=== PATIENT | female | born 1935 | race Caucasian/White ===

== ENCOUNTER 2022-10-07 14:25 | Outpatient (CLI) | payer MEDICARE, BC, SELFPAY | END 2022-10-07 14:26 | disposition home or self-care (01) | DX: R20.0 Anesthesia of skin (principal); I73.9 Peripheral vascular disease, unspecified | CPT/HCPCS: 93922 ==

== ENCOUNTER 2023-03-27 12:02 | Outpatient (CLI) | payer MEDICARE, BC, SELFPAY | END 2023-03-27 12:03 | disposition home or self-care (01) | PROVIDERS: PCP Family Medicine; Visit Provider Family Medicine | DX: I10 Essential (primary) hypertension (principal); R53.83 Other fatigue; E03.9 Hypothyroidism, unspecified; E78.5 Hyperlipidemia, unspecified | CPT/HCPCS: 80048; 80061; 84443; 85025 ==

== ENCOUNTER 2023-09-02 12:21 | Outpatient (CLI) | payer MEDICARE, BC, SELFPAY | END 2023-09-02 12:22 | disposition home or self-care (01) | PROVIDERS: PCP Family Medicine; Visit Provider Family Medicine | DX: I50.9 Heart failure, unspecified (principal) | CPT/HCPCS: 80048; 83880; 85025 ==

== ENCOUNTER 2023-09-23 07:24 | Emergency (ER) | payer MEDICARE, BC, SELFPAY ==
[2023-09-23] VITALS (39 sets, daily range): BP systolic 141–202; BP diastolic 67–121; PULSE 71–84; RESP 18; TEMP 37.5; O2SAT 87–100; BMI 29.3
--- NOTE | 2023-09-23 08:12 | CT_ITS ---
Final Report Patient: ANGELICA OWENS Facility:?[facility] Patient ID:?[id number] Site Patient ID:?[id number]. Site :?[id number] Study:?CT Head WITHOUT-09/23/2023 8:28:19 AM Ordering Physician:KOKO Final Report: INDICATION: Headache COMPARISON: None TECHNIQUE: CT examination of the head was performed as axial sections without intravenous contrast. Images were obtained from the vertex of the skull through the skull base. Please note that all CT scans at this facility use dose modulation, iterative reconstruction, and/or weight-based dosing when appropriate to reduce radiation dose to as low as reasonably achievable. FINDINGS: The brain shows no sign of mass lesion, mass effect, hemorrhage, or edema. There are involutional changes. There is moderate cortical atrophy and there is moderate white matter disease. There is no hydrocephalus. The visualized portions of the orbits are normal in appearance. The osseous structures are normal in appearance with no sign of abnormality in the skull base or calvarium. IMPRESSION: Involutional changes. No acute-appearing findings. Please note that all CT scans at this facility use dose modulation, iterative reconstruction, and/or weight-based dosing when appropriate to reduce radiation dose to as low as reasonably achievable. Dictated by Damon Luciano MD @ 09/23/2023 8:33:00 AM (Electronic Signature)
[2023-09-23 08:19] LABS: Troponin, Point-of-Care* 0.01 ng/ml (0.01-0.04)
[2023-09-23 08:27] LABS: Basophils Absolute Auto 0.03 K/uL (0.00-0.30); Basophils Percent Auto 0.3 % (0.0-3.0); Eosinophils Absolute Auto 0.39 K/uL (0.00-0.50); Eosinophils Percent Auto 3.6 % (0.0-7.0); Hematocrit 42.7 % (33.0-51.0); Hemoglobin* 13.7 gm/dL (12.0-16.0); Immature Granulocytes Abs Auto 0.04 K/uL (0.00-0.30); Immature Granulocytes Pct Auto 0.4 %; Lymphocytes Percent Auto 13.5 % (20-44); Mean Corpuscular HGB Conc 32 gm/dL (32-36); Mean Corpuscular Hemoglobin 30 pg (26-34); Mean Corpuscular Volume 95 fL (80-100); Monocytes Percent Auto 8.6 % (0.0-11.0); Neutrophils Percent Auto 73.6 % (42.0-72.0); Platelet Count* 293 K/uL (140-440); RDW Coefficient of Variation % 13.8 % (11.5-15.5); White Blood Count* 10.97 K/uL (4.50-11.00)
--- NOTE | 2023-09-23 08:31 | ED_ITS ---
HPI - General Adult General Date Seen: 09/23/23 Chief complaint: Dizziness/Vertigo Stated complaint: headache,dizzy Time Seen by Provider: 09/23/23 08:02 Source: patient Mode of arrival: ambulatory Limitations: no limitations History of Present Illness HPI narrative: Patient is an 88-year-old female present to emergency department for headache her. She states she has been having this headache on and off for over a year now. She is having it treated by her primary care provider. She states usually headache will get better throughout the morning states right now it is not getting better despite taking Tylenol at home. She states she needs something to get the headache under control at this time. She admits to mild dizziness, mild chest pain, mild nausea. States she did not really notice the symptoms until asked about them. She does feel like her vision is a little blurred. States the dizziness she typically has with this headache. Headache does not seem different than previous headaches. Denies fevers, chills, shortness of breath, weakness, numbness, abdominal pain. States the headache feels like it is on top of her head. No other concerns noted Related Data Home Medications Medication Instructions Recorded Confirmed acetaminophen 500 mg tablet 1,000 mg PO Q6H PRN 12/10/22 09/23/23 ammonium lactate 12 % topical cream 1 applic topical BID PRN 12/10/22 09/23/23 aspirin 81 mg chewable tablet 81 mg PO QDAY 12/10/22 09/23/23 latanoprost 0.005 % eye drops 1 drp ophthalmic (eye) QPM 12/10/22 09/23/23 levothyroxine 50 mcg tablet 50 mcg PO QDAY 12/10/22 09/23/23 (Synthroid) nystatin-triamcinolone 100,000 applic topical 12/10/22 09/02/23 unit/g-0.1 % topical cream propranolol 80 mg capsule,24 80 mg PO BID 12/10/22 09/23/23 hr,extended release triamcinolone acetonide 0.1 % 1 applic topical BID-TID 12/10/22 09/23/23 topical cream prednisolone acetate 1 % eye 1 drp ophthalmic (eye) QDAY 03/27/23 09/23/23 drops,suspension timolol 0.5 % eye drops 1 drp ophthalmic (eye) BID 03/27/23 09/23/23 clobetasol 0.05 % topical ointment 1 applic topical PRN 06/13/23 09/02/23 ketoconazole 2 % shampoo 1 applic topical 09/15/23 09/15/23 timolol maleate 0.5 % eye drops 1 drp ophthalmic (eye) 09/15/23 09/15/23 Previous Rx's Medication Instructions Recorded cowvofagil-wuydbgnftnhrm-biqehlun 1 cap PO TID PRN pain #30 caps 12/10/22 50 mg-300 mg-40 mg capsule (Fioricet) albuterol sulfate 90 mcg/actuation 2 puff inhalation Q6H PRN 01/28/23 aerosol inhaler (Ventolin HFA) shortness of breath or wheezing #8.5 grams pregabalin 25 mg capsule 25 mg PO BID #60 caps 06/16/23 valsartan 80 mg tablet 80 mg PO DAILY #90 tabs 08/26/23 furosemide 20 mg tablet 20 mg PO BID #180 tabs 09/03/23 azithromycin 250 mg tablet See Rx Instructions PO .COMPLEX #6 09/23/23 (Zithromax Z-Phillip) tabs Allergies Allergy/AdvReac Type Severity Reaction Status Date / Time hydrochlorothiazide Allergy Mild Rash Verified 09/23/23 07:33 acetaminophen Allergy Unknown Vomiting Verified 09/23/23 07:33 [From Darvocet-N] amlodipine Allergy Unknown Headache Verified 09/23/23 07:33 codeine Allergy Unknown Nausea Verified 09/23/23 07:33 doxazosin Allergy Unknown Tinnitus Verified 09/23/23 07:33 losartan Allergy Unknown Rash Verified 09/23/23 07:33 paroxetine Allergy Unknown Unknown Verified 09/23/23 07:33 pravastatin Allergy Unknown Unknown Verified 09/23/23 07:33 propoxyphene Allergy Unknown Vomiting Verified 09/23/23 07:33 [From Darvocet-N] topiramate Allergy Unknown Gastrointestinal Verified 09/23/23 07:33 Upset zinc [From Orazinc] Allergy Unknown Diarrhea Verified 09/23/23 07:33 lisinopril AdvReac Unknown Cough Verified 09/23/23 07:33 Review of Systems Status of ROS: Reports: 10 or more systems reviewed and unremarkable except as noted in History and below [facility] Medical History (Updated 09/23/23 @ 13:13 by Ced Ag, DO) Prolapse of female pelvic organs ?N81.9 - Female genital prolapse, unspecified (ICD-10) Lichen sclerosus ?L90.0 - Lichen sclerosus et atrophicus (ICD-10) Chronic cough ?R05.3 - Chronic cough (ICD-10) Chronic low back pain ?M54.50 - Low back pain, unspecified (ICD-10) ?G89.29 - Other chronic pain (ICD-10) 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) ?I67.1 - Cerebral aneurysm, nonruptured (ICD-10) History of basal cell carcinoma (BCC) ?Z85.828 - Personal history of other malignant neoplasm of skin (ICD-10) CHF (congestive heart failure) ?I50.9 - Heart failure, unspecified (ICD-10) CKD (chronic kidney disease) stage 3, GFR 30-59 ml/min ?N18.30 - Chronic kidney disease, stage 3 unspecified (ICD-10) Meralgia paresthetica ?G57.10 - Meralgia paresthetica, unspecified lower limb (ICD-10) IBS (irritable bowel syndrome) ?K58.9 - Irritable bowel syndrome without diarrhea (ICD-10) Peripheral neuropathy ?G62.9 - Polyneuropathy, unspecified (ICD-10) Bilateral sensorineural hearing loss ?H90.3 - Sensorineural hearing loss, bilateral (ICD-10) Venous insufficiency ?I87.2 - Venous insufficiency (chronic) (peripheral) (ICD-10) Hypothyroidism ?E03.9 - Hypothyroidism, unspecified (ICD-10) Adjustment disorder with depressed mood ?F43.21 - Adjustment disorder with depressed mood (ICD-10) Fuchs' corneal dystrophy of both eyes ?H18.513 - Endothelial corneal dystrophy, bilateral (ICD-10) Hyperlipidemia ?E78.5 - Hyperlipidemia, unspecified (ICD-10) Primary open angle glaucoma ?H40.1190 - Primary open-angle glaucoma, unspecified eye, stage unspecified (ICD-10) YANG (obstructive sleep apnea) ?G47.33 - Obstructive sleep apnea (adult) (pediatric) (ICD-10) Migraine ?G43.909 - Migraine, unspecified, not intractable, without status migrainosus (ICD-10) Primary hypertension ?I10 - Essential (primary) hypertension (ICD-10) Surgical History (Updated 12/26/22 @ 13:48 by Gertrude Grover) History of foot surgery ?Z98.890 - Other specified postprocedural states (ICD-10) History of blepharoplasty (10/07/13) ?Z98.890 - Other specified postprocedural states (ICD-10) History of tonsillectomy ?Z90.89 - Acquired absence of other organs (ICD-10) History of appendectomy ?Z90.49 - Acquired absence of other specified parts of digestive tract (ICD- 10) History of bladder suspension procedure (04/26/10) ?Z98.890 - Other specified postprocedural states (ICD-10) ?Z87.448 - Personal history of other diseases of urinary system (ICD-10) History of anterior colporrhaphy (02/17/19) ?Z98.890 - Other specified postprocedural states (ICD-10) History of total abdominal hysterectomy and bilateral salpingo-oophorectomy (1989) ?Z90.710 - Acquired absence of both cervix and uterus (ICD-10) ?Z90.722 - Acquired absence of ovaries, bilateral (ICD-10) ?Z90.79 - Acquired absence of other genital organ(s) (ICD-10) History of varicose vein stripping ?Z98.890 - Other specified postprocedural states (ICD-10) History of phacoemulsification of cataract of both eyes with intraocular lens implantation (2001) ?Z98.41 - Cataract extraction status, right eye (ICD-10) ?Z98.42 - Cataract extraction status, left eye (ICD-10) ?Z96.1 - Presence of intraocular lens (ICD-10) History of corneal transplant (2007) ?Z94.7 - Corneal transplant status (ICD-10) History of ptosis repair (02/24/18) ?Z98.890 - Other specified postprocedural states (ICD-10) Family History (Updated 01/12/23 @ 16:36 by Dannie Porter MD) Daughter Thyroid disease Father Lung cancer Mother Coronary artery disease Depression Endometrial cancer High blood pressure Ovarian cancer Stroke Thyroid disease Varicose veins of both lower extremities Paternal Grandmother Diabetes Sister Eczema Stroke Daughter Thyroid disease Social History Smoking Status: Never smoker Do you use any of these nicotine containing products: None Second hand tobacco smoke exposure: No How often do you have a drink containing alcohol: never AUDIT-C Alcohol total score: 0 Non-prescribed substance use: denies use Little interest or pleasure in doing things: not at all Feeling down, depressed, or hopeless: not at all Exam Narrative: Exam Narrative: Const: Well-nourished, Well-developed, in mild distress Eyes: PERRL, no conjunctival injection, and symmetrical lids HENT: Atraumatic external nose and ears. Moist mucous membranes. Neck: Symmetric, trachea midline, No thyromegaly. CVS: RRR, No murmurs or gallops. Peripheral pulses 2+ and equal in all extremities RESP: Unlabored respiratory effort. Clear to auscultation bilaterally. GI: Nontender/Nondistended, No rebound or guarding. MSK:Extremities w/o deformity, Normal Active ROM Skin: Warm, Dry. No rashes or lesions. Neuro: Normal Muscle tone, No focal neurological deficits. Psych: Awake, Alert, & Oriented x3. Appropriate mood and affect. Const: Vital Signs, click to edit/add: Vital Signs - 24 hr 09/23/23 07:26 09/23/23 08:26 09/23/23 08:30 Temperature 99.5 F Pulse Rate 75 71 Pulse Rate [Right Pulse Oximeter] 76 Respiratory Rate 18 Blood Pressure Blood Pressure [Ri ght Upper Arm] 194/106 H Pulse Oximetry 95 96 97 Oxygen Delivery Me thod Room Air 09/23/23 08:33 09/23/23 08:45 09/23/23 08:46 Temperature Pulse Rate 73 74 73 Pulse Rate [Right Pulse Oximeter] Respiratory Rate Blood Pressure 202/113 H 193/84 H Blood Pressure [Ri ght Upper Arm] Pulse Oximetry 97 93 95 Oxygen Delivery Me thod 09/23/23 08:47 09/23/23 09:00 09/23/23 09:02 Temperature Pulse Rate 72 77 77 Pulse Rate [Right Pulse Oximeter] Respiratory Rate Blood Pressure 171/71 H Blood Pressure [Ri ght Upper Arm] Pulse Oximetry 96 94 96 Oxygen Delivery Me thod 09/23/23 09:15 09/23/23 09:16 09/23/23 09:30 Temperature Pulse Rate 79 80 82 Pulse Rate [Right Pulse Oximeter] Respiratory Rate Blood Pressure 169/84 H Blood Pressure [Ri ght Upper Arm] Pulse Oximetry 95 95 96 Oxygen Delivery Me thod 09/23/23 09:32 09/23/23 09:45 09/23/23 09:49 Temperature Pulse Rate 84 80 81 Pulse Rate [Right Pulse Oximeter] Respiratory Rate Blood Pressure 162/113 H Blood Pressure [Ri ght Upper Arm] Pulse Oximetry 96 99 98 Oxygen Delivery Me thod 09/23/23 10:00 09/23/23 10:01 09/23/23 10:02 Temperature Pulse Rate 78 81 79 Pulse Rate [Right Pulse Oximeter] Respiratory Rate Blood Pressure 145/72 H Blood Pressure [Ri ght Upper Arm] Pulse Oximetry 96 98 96 Oxygen Delivery Me thod 09/23/23 10:15 09/23/23 10:16 09/23/23 10:31 Temperature Pulse Rate 79 78 81 Pulse Rate [Right Pulse Oximeter] Respiratory Rate Blood Pressure 151/71 H 154/108 H Blood Pressure [Ri ght Upper Arm] Pulse Oximetry 95 97 95 Oxygen Delivery Me thod 09/23/23 10:32 09/23/23 10:46 09/23/23 10:46 Temperature Pulse Rate 81 83 83 Pulse Rate [Right Pulse Oximeter] Respiratory Rate Blood Pressure 159/121 H 159/121 H Blood Pressure [Ri ght Upper Arm] Pulse Oximetry 95 95 95 Oxygen Delivery Me thod 09/23/23 10:47 09/23/23 11:11 09/23/23 11:15 Temperature Pulse Rate 80 77 77 Pulse Rate [Right Pulse Oximeter] Respiratory Rate Blood Pressure Blood Pressure [Ri ght Upper Arm] Pulse Oximetry 97 97 87 L Oxygen Delivery Me thod 09/23/23 11:16 09/23/23 11:17 09/23/23 11:30 Temperature Pulse Rate 80 80 77 Pulse Rate [Right Pulse Oximeter] Respiratory Rate Blood Pressure 151/80 H Blood Pressure [Ri ght Upper Arm] Pulse Oximetry 97 96 92 Oxygen Delivery Me thod 09/23/23 11:31 09/23/23 11:45 09/23/23 11:46 Temperature Pulse Rate 78 81 83 Pulse Rate [Right Pulse Oximeter] Respiratory Rate Blood Pressure 157/76 H 153/75 H Blood Pressure [Ri ght Upper Arm] Pulse Oximetry 94 94 96 Oxygen Delivery Me thod 09/23/23 12:00 09/23/23 12:01 09/23/23 12:15 Temperature Pulse Rate 81 79 77 Pulse Rate [Right Pulse Oximeter] Respiratory Rate Blood Pressure 171/82 H Blood Pressure [Ri ght Upper Arm] Pulse Oximetry 100 98 94 Oxygen Delivery Me thod 09/23/23 12:17 09/23/23 12:30 09/23/23 12:31 Temperature Pulse Rate 77 71 74 Pulse Rate [Right Pulse Oximeter] Respiratory Rate Blood Pressure 144/79 H 141/67 H Blood Pressure [Ri ght Upper Arm] Pulse Oximetry 90 88 88 Oxygen Delivery Me thod 09/23/23 12:45 Temperature Pulse Rate 73 Pulse Rate [Right Pulse Oximeter] Respiratory Rate Blood Pressure Blood Pressure [Ri ght Upper Arm] Pulse Oximetry 96 Oxygen Delivery Me thod Course Vital Signs Vital signs: Initial Vital Signs Temperature 99.5 F 09/23/23 07:26 Temperature Source Temporal Artery Scan 09/23/23 07:26 Pulse Rate 76 09/23/23 07:26 Respiratory Rate 18 09/23/23 07:26 Blood Pressure 194/106 H 09/23/23 07:26 Blood Pressure Mean 135 H 09/23/23 07:26 Blood Pressure Position Sitting 09/23/23 07:26 Pulse Oximetry 95 09/23/23 07:26 Oxygen Delivery Method Room Air 09/23/23 07:26 Vital Signs Temperature 99.5 F 09/23/23 07:26 Pulse Rate 76 09/23/23 07:26 Respiratory Rate 18 09/23/23 07:26 Blood Pressure 194/106 H 09/23/23 07:26 Pulse Oximetry 95 09/23/23 07:26 Oxygen Delivery Method Room Air 09/23/23 07:26 Temperature 99.5 F 09/23/23 07:26 Pulse Rate 73 09/23/23 12:45 Respiratory Rate 18 09/23/23 07:26 Blood Pressure 141/67 H 09/23/23 12:31 Pulse Oximetry 96 09/23/23 12:45 Oxygen Delivery Method Room Air 09/23/23 07:26 Medications Administered Medications: Discontinued Medications Generic Name Dose Route Start Last Admin Trade Name Freq PRN Reason Stop Dose Admin Diphenhydramine HCl 25 mg 09/23/23 08:11 09/23/23 08:38 Diphenhydramine 50 Mg/Ml Inj IVP 09/23/23 08:12 25 mg ONCE ONE Administration Hydralazine HCl 10 mg 09/23/23 08:20 09/23/23 08:47 Hydralazine Hcl 20 Mg/Ml Inj IVP 09/23/23 08:21 10 mg ONCE ONE Administration Lactated Ringer's 1,000 mls @ 1,000 mls/hr 09/23/23 08:11 09/23/23 08:57 Lactated Ringers 1000 Ml IV 09/23/23 09:10 Infused .Q1H ONE Infusion Ketamine HCl 20 mg/ Sodium 100.2 mls @ 200.4 mls/hr 09/23/23 09:51 09/23/23 11:56 Chloride IVPB 09/23/23 09:52 Infused ONCE ONE Infusion Ketorolac Tromethamine 15 mg 09/23/23 08:11 09/23/23 08:38 Ketorolac 15 Mg/Ml Inj IVP 09/23/23 08:12 15 mg ONCE ONE Administration Metoclopramide HCl 10 mg 09/23/23 08:11 09/23/23 08:38 Metoclopramide Hcl 5 Mg/Ml Inj IVP 09/23/23 08:12 10 mg ONCE ONE Administration Morphine Sulfate 4 mg 09/23/23 12:01 09/23/23 12:19 Morphine 4 Mg/Ml Inj IM 09/23/23 12:02 4 mg ONCE ONE Administration Medical Decision Making MDM Narrative Medical decision making narrative: Patient is an 88-year-old female presenting to the emergency department for a headache. She has had headaches like this before. This 1 does not seem worse than normal it is just more persistent. Patient will be given a migraine cocktail. She complained of mild chest pain. Will also order an ACS workup. EKG and troponin showed no concerning abnormalities. Lab work all showed no concerning findings. She was given some hydralazine to bring a blood pressure. Was also given a migraine cocktail. CT reviewed by myself and the radiologist showed no concerning abnormalities. She is still having headache after his migraine cocktail with no improvement. At this time I tried to ketamine for her headache. This also had no improvement in her symptoms. After speaking to her can she is having and his bilateral frontal and maxillary sinus tenderness. This is likely think this might be more sinusitis related. Says she is still having a headache and has no seems more sinus related than a true headache I tried morphine. After that she states symptoms were much better and she is feels good enough to go home. She has only had the symptoms for short amount of time but considering the severe did I will treat her with a Z-Phillip. I am hoping the anti inflammatory aspect of azithromycin will help her symptoms also. She is agreeable to this plan. She will follow-up with ENT Lab Data Labs: Lab Results 09/23/23 09/23/23 Range/Units 08:03 08:20 WBC 10.97 (4.50-11.00) K/uL RBC 4.50 (4.00-5.20) m/uL Hgb 13.7 (12.0-16.0) gm/dL Hct 42.7 (33.0-51.0) % MCV 95 (80-100) fL MCH 30 (26-34) pg MCHC 32 (32-36) gm/dL RDW Coeff of Camilo 13.8 (11.5-15.5) % Plt Count 293 (140-440) K/uL Neut % (Auto) 73.6 H (42.0-72.0) % Lymph % (Auto) 13.5 L (20-44) % [place] % (Auto) 8.6 (0.0-11.0) % Eos % (Auto) 3.6 (0.0-7.0) % Baso % (Auto) 0.3 (0.0-3.0) % Neut # (Auto) 8.10 H (1.7-7.0) K/uL Lymph # (Auto) 1.50 (0.90-2.90) K/uL Highland # (Auto) 0.90 (0.00-0.90) K/UL Eos # (Auto) 0.39 (0.00-0.50) K/uL Baso # (Auto) 0.03 (0.00-0.30) K/uL Abs Immat Gran (auto) 0.04 (0.00-0.30) K/uL Imm/Tot Granulo (auto) 0.4 % Sodium 138 (135-149) mmol/L Potassium 4.0 (3.6-5.1) mmol/L Chloride 103 (96-114) mmol/L Carbon Dioxide 28 (20-32) mmol/L Anion Gap 7 (7-15) mEq/L BUN 24 (7-30) mg/dL Creatinine 0.8 (0.5-1.5) mg/dL Estimated Creat Clear 31.94 Estimated GFR 72 ml/min Glucose 111 (60-115) mg/dL Calcium 9.4 (8.4-10.6) mg/dL Total Bilirubin 0.5 (0.1-1.5) mg/dL AST 28 (12-35) U/L ALT 18 (4-35) U/L Alkaline Phosphatase 58 (40-150) U/L Total Protein 7.5 (6.0-8.3) g/dL Albumin 4.3 (3.3-5.0) g/dL SARS-CoV-2 (PCR) Negative SARS-CoV-2 (Negative) Influenza Type A (PCR) Negative PCR FLU A (Negative) Influenza Type B (PCR) Negative PCR FLU B (Negative) RSV (PCR) Negative PCR RSV (Negative) POC Troponin I 0.01 (0.01-0.04) ng/ml Imaging Data CT scan - head: Radiologist's impression: Involutional changes. No acute-appearing findings. Please note that all CT scans at this facility use dose modulation, iterative reconstruction, and/or weight-based dosing when appropriate to reduce radiation dose to as low as reasonably achievable. Dictated by Damon Luciano MD @ 09/23/2023 8:33:00 AM ECG Data Attestation: I personally reviewed and interpreted this ECG as follows: Prior ECG tracings: not available for review Interpretation: Normal sinus rhythm with a rate of 71 beats per minute, left axis deviation, normal intervals, normal axis, no ST or T-wave abnormalities Discharge Plan Discharge Clinical Impression: Head ache, Sinusitis Patient Disposition: Home, Self-Care Condition: Improved Instructions: Sinusitis (ED) Additional Instructions: I believe some of your symptoms are related to sinusitis. Please follow-up with Dr. Anderson. Call [phone] for an appointment. Also giving an antibiotic that was sent to your pharmacy. Take Tylenol and ibuprofen for headache. Return for new worsening symptoms Prescriptions: New azithromycin [Zithromax Z-Phillip] 250 mg tablet See Rx Instructions .ROUTE .COMPLEX Qty: 6 0RF Rx Instructions: For 250 mg dose pack: take 500 mg today (day 1), then 250 mg for 4 days (days 2-5) No Action acetaminophen 500 mg tablet 1,000 mg PO Q6H PRN ammonium lactate 12 % cream 1 applic topical BID PRN aspirin 81 mg tablet,chewable 81 mg PO QDAY latanoprost 0.005 % drops 1 drp ophthalmic (eye) QPM nystatin-triamcinolone 100,000-0.1 unit/g-% cream topical propranolol 80 mg capsule,extended release 24 hr 80 mg PO BID levothyroxine [Synthroid] 50 mcg tablet 50 mcg PO QDAY triamcinolone acetonide 0.1 % cream 1 applic topical BID-TID xfvzwaekpg-wkofqlavmfglg-noea [Fioricet] 50-300-40 mg capsule 1 cap PO TID PRN (Reason: pain) Qty: 30 0RF clobetasol 0.05 % ointment 1 applic topical PRN albuterol sulfate [Ventolin HFA] 90 mcg/actuation HFA aerosol inhaler 2 puff inhalation Q6H PRN (Reason: shortness of breath or wheezing) Qty: 8.5 5RF prednisolone acetate 1 % drops,suspension 1 drp ophthalmic (eye) QDAY timolol 0.5 % drops 1 drp ophthalmic (eye) BID timolol maleate 0.5 % drops 1 drp ophthalmic (eye) ketoconazole 2 % shampoo 1 applic topical pregabalin 25 mg capsule 25 mg PO BID Qty: 60 0RF valsartan 80 mg tablet 80 mg PO DAILY Qty: 90 0RF furosemide 20 mg tablet 20 mg PO BID Qty: 180 1RF Follow Up/Referrals: Dannie Porter MD [Primary Care Provider] - Stand Alone Forms: [facility] Info Instructions
[2023-09-23 08:38] LABS: Albumin* 4.3 g/dL (3.3-5.0); Chloride* 103 mmol/L (96-114)
[2023-09-23] MEDS: METOCLOPRAMIDE HCL 5 MG/ML INJ 10 MG IVP (08:38)
[2023-09-23] MEDS: LACTATED RINGERS 1000 ML 1,000 ML IV (08:38)
[2023-09-23] MEDS: diphenhydrAMINE 50 MG/ML inj 25 MG IVP (08:38)
[2023-09-23] MEDS: KETOROLAC 15 MG/ML inj IVP (08:38)
[2023-09-23 08:39] LABS: Sodium* 138 mmol/L (135-149)
[2023-09-23 08:41] LABS: Anion Gap 7 mEq/L (7-15); Bilirubin Total* 0.5 mg/dL (0.1-1.5); Carbon Dioxide* 28 mmol/L (20-32); Creatinine* 0.8 mg/dL (0.5-1.5); Est. Creatinine Clearance* 31.94; Estimated Glomerular Filt Rate 72 ml/min
[2023-09-23 08:42] LABS: Alanine Aminotransferase* 18 U/L (4-35); Alkaline Phosphatase* 58 U/L (40-150); Aspartate Amino Transferase* 28 U/L (12-35); Blood Urea Nitrogen* 24 mg/dL (7-30); Calcium* 9.4 mg/dL (8.4-10.6); Glucose* 111 mg/dL (60-115); Total Protein* 7.5 g/dL (6.0-8.3)
[2023-09-23] MEDS: HYDRALAZINE HCL 20 MG/ML inj 10 MG IVP (08:47)
[2023-09-23 08:49] LABS: Slide Review Reflex No
[2023-09-23 09:45] LABS: PCR FLU A Negative PCR FLU A (Negative); PCR FLU B Negative PCR FLU B (Negative); PCR RSV Negative PCR RSV (Negative); SARS PCR* Negative SARS-CoV-2 (Negative)
[2023-09-23] MEDS: KETAMINE 50 MG/0.5 ML 20 MG in 0.9 % SODIUM CHLORIDE 100 ml 100 ML 200.4 MG IVPB (11:25)
[2023-09-23] MEDS: MORPHINE 4 MG/ML INJ IM (12:19)
== END 2023-09-23 13:42 | disposition home or self-care (01) ==
PROVIDERS: Emergency Provider Student in an Organized Health Care Education/Training Program; PCP Family Medicine
DX: R51.9 Headache, unspecified (principal); J32.9 Chronic sinusitis, unspecified
CPT/HCPCS: 36415; 70450; 80053; 84484; 85025; 87631; 93005; 96365; 96372; 96375; 99283; 99284; 99285; J0360; J1200; J1885; J2270; J2765; J3490; J7120

== ENCOUNTER 2023-10-09 07:45 | Outpatient (CLI) | payer MEDICARE, BC, SELFPAY ==
--- NOTE | 2023-10-09 09:39 | W.PM.STED ---
Stress Test Note Date Date Seen: 10/09/23 Date of test: 10/09/23 Providers Primary care provider: Dannie Porter Stress test physician: Devorah Lainez Stress Test Note Stress test ordered: Stress Myoview Indication for test: Chest pain Stress test medicine: None Results discussion: Resting EKG: Sinus rhythm, 67 beats per minute. Resting blood pressure: 156/94 Stress test: A Lexiscan had been ordered but patient requested to try to walk on the treadmill. We did do a modified Gopal protocol treadmill exercise Myoview. Patient exercised to his 6 minutes 30 seconds, requested to stop due to reaching exercise capacity. She had quit IV 0.1 Mets. She had a maximum heart rate of 130 beats per minute which was 114% of a calculated target heart rate of 114. This gives her rate pressure product of 19,760. I see no evidence of any arrhythmia, no definitive EKG changes diagnostic of any ischemia. Patient had no chest pain or any concerning symptoms. She will have her post stress nuclear images obtained. Impression: Subjectively negative, objectively negative EKG portion of this modified Gopal protocol treadmill Myoview. Follow up suggested: She will await the images to be read and have her primary provider get a formal report. She is discharged from stress test in stable condition.
[2023-10-09 09:50] VITALS: BP 173/98; PULSE 79
== END 2023-10-09 07:46 | disposition home or self-care (01) ==
LOC: STRESS 07:46
PROVIDERS: PCP Family Medicine; Visit Provider Family Medicine
DX: R07.9 Chest pain, unspecified (principal)
CPT/HCPCS: 78452; 93016; 93017; A9500

== ENCOUNTER 2024-03-04 09:45 | Outpatient (CLI) | payer MEDICARE, BC, SELFPAY | END 2024-03-04 09:46 | disposition home or self-care (01) | LOC: NFLDREF 03-06 06:45 | PROVIDERS: PCP Family Medicine; Referring Provider Family Medicine; Visit Provider Family Medicine | DX: E03.9 Hypothyroidism, unspecified (principal) | CPT/HCPCS: 84443 ==

== ENCOUNTER 2024-07-14 10:37 | Outpatient (CLI) | payer MEDICARE, BC, SELFPAY | END 2024-07-14 10:38 | disposition home or self-care (01) | PROVIDERS: PCP Family Medicine; Visit Provider Family Medicine | DX: E78.2 Mixed hyperlipidemia (principal); N18.30 Chronic kidney disease, stage 3 unspecified; E03.9 Hypothyroidism, unspecified; I10 Essential (primary) hypertension; R53.83 Other fatigue | CPT/HCPCS: 80048; 84443; 85025 ==

== ENCOUNTER 2025-01-08 14:45 | Emergency (ER) | payer MEDICARE, BC, SELFPAY ==
--- OUTSIDE RECORDS SUMMARY | 2018-07-21 10:41 | XMS_ITS | Continuity of Care Document ---
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 [address] [facility], [facility] [address], [place], [place], [id number] , [place]. tel:[phone] Family History Family Member Type Diagnosis Age At Onset No Information Payers Payer name Insurance type Covered libertarian ID Authoriza tion(s) No Information Social History Type Description Quantity Date Captured Comments Sex Female Smoking Status No Information Chief Complaint And Reason For Visit No Information Reason For Referral Reason For Referral No Information History Of Present Illness Encounter Date Complaint History Of Prese nt Illness No Information Functional Status Date Functional Assessmen t No Information Instructions Date Instruction Additional Infor mation No Information Assessments Type Assessment Date No Information Patient Care Teams Name Effective Dates (start - stop) Status Members No Information
--- OUTSIDE RECORDS SUMMARY | 2018-07-21 10:41 | XMS_ITS | Continuity of Care Document ---
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 No Information Link MD [place]. [address] [facility], [facility] [[email or web address] [address], [place], [place], [address] , [place]. tel:[phone] Family History Family Member Type Diagnosis Age At Onset No Information Payers Payer name Insurance type Covered republican ID Authoriza tion(s) No Information Social History [...]
--- OUTSIDE RECORDS SUMMARY | 2025-01-08 14:47 | XMS_ITS | Encounter Summary ---
Author Organization [facility] Address [address] [place] [address] Care Team Providers Care Awake Overnight Counselor Name Role Phone Elsewhere, Pcp Primary Care Provider Unavailabl e Encounter Details Date Type Department Care Team (Late st Contact Info) Description 04/28/2017 Historical Ophthalmology [facility] Sha Isaacs Jr., M.D. 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 - 04/28/2017 3:05 PM CDT Eye General CHIEF COMPLAINT Complete Exam HISTORY OF PRESENT ILLNESS Pt feels overall she is not seeing as well both eyes when reading at near. IMPRESSION / REPORT / PLAN #1 s/p DSEK ou, doing well Continue PF/1 OU #2 Pseudophakia #3 Increased C/D OCT nerve RTO 6 months, no changes in meds DIAGNOSIS #1 s/p DSEK ou, doing well #2 Pseudophakia #3 Increased C/D CDM Reports - EYEGEN Id: [id number] Status: Fnl documented in this encounter Plan of Treatment Not on file documented as of this encounter Visit Diagnoses Not on filedocumented in this encounter Additional Health Concerns Infection Onset Date Last Indicated Resolved Time COVID19 Pending 10/21/2020 10/21/2020 11/10/2020 4 :49 AM CDT COVID19 Pending 04/19/2022 04/19/2022 04/19/2022 6 :48 PM CDT COVID19 Pending 04/19/2022 04/19/2022 04/19/2022 7 :30 PM CDT COVID19 Pending 11/18/2022 11/18/2022 11/18/2022 1 :00 PM CDT Assessment Noted Time PHQ-9 Depression Total Score: 9 04/12/20 11 3:30 PM CDT documented as of this encounter Care Teams Awake Overnight Counselor Relationship Specialty Start Date End Date Elsewhere, Pcp PCP - General Internal Medicine 07/07/24 documented as of this encounter
--- OUTSIDE RECORDS SUMMARY | 2025-01-08 14:48 | XMS_ITS | Encounter Summary ---
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 - 04/19/2008 11:04 AM CDT Eye Subsequent Visit HISTORY OF PRESENT ILLNESS Preop checklist: preop instructions given, glasses read, sent for IOL measurements, informed consent documented in Informed Consent (IC) section, preop exam to be scheduled. CDM Reports - EYESV Id: [id number] Status: Fnl documented in this encounter Plan [...] 11/18/2022 11/18/2022 11/18/2022 1 :00 PM CDT documented as of this encounter Care Teams Balancing Machine Operator Relationship Specialty Start Date End Date Elsewhere, Pcp PCP - General Internal Medicine 07/07/24 documented as of this encounter
--- OUTSIDE RECORDS SUMMARY | 2025-01-08 14:48 | XMS_ITS | Encounter Summary ---
Author Organization [facility] Address [address] [place] [address] Care Team Providers Care Button Cutting Machine Operator Name Role Phone Elsewhere, Pcp Primary Care Provider Unavailabl e Encounter Details Date Type Department Care Team (Late st Contact Info) Description 11/14/2008 Historical Ophthalmology [facility] Demetrius Wagner M.D. 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 - 11/14/2008 9:57 AM CDT Eye Postoperative MULTI-VISIT DOCUMENT This document contains multiple patient visits and is available for review in Document Viewer. CDM Reports - EYEPO Id: [id number] Status: Fnl documented in this encounter Plan [...] documented as of this encounter Care Teams Button Cutting Machine Operator Relationship Specialty Start Date End Date Elsewhere, Pcp PCP - General Internal Medicine 07/07/24 documented as of this encounter
--- OUTSIDE RECORDS SUMMARY | 2025-01-08 14:48 | XMS_ITS | Encounter Summary ---
Author Organization [facility] Address [address] [place] [address] Care Team Providers Care Guard Supervisor Name Role Phone Elsewhere, Pcp Primary Care Provider Unavailabl e Encounter Details Date Type Department Care Team (Late st Contact Info) Description 02/16/2015 Historical Ophthalmology [facility] Magnus Fontana M.D. 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 - 02/16/2015 10:04 AM CDT Eye General CHIEF COMPLAINT S/P DSEK, left eye February 08 HISTORY OF PRESENT ILLNESS Hard to tell if the vision is getting better. Does have a burning feeling at times. Feels like there is something in the outer corner of the left eye, or like someone stuck their finger in it, sicne surgery. IMPRESSION / REPORT / PLAN Consult requested by: Sha Isaacs MD #1 s/p Descemet stripping endothelial keratoplasty, left eye. Doing well. 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 Pred acetate 1% 1x/day #3 Pseudophakia, both eyes Stable in bag. #4 Glaucoma suspect, right>left eye Based on cupping. KIMBERLEY visual field normal OS, early arcuate changes OD. DIAGNOSIS #1 s/p Descemet stripping endothelial keratoplasty, left eye. #2 Fuchs endothelial dystrophy #3 Pseudophakia, both eyes #4 Glaucoma suspect, right>left eye CDM Reports - EYEGEN Id: [id number] Status: Fnl documented in this encounter Plan [...] documented as of this encounter Care Teams Guard Supervisor Relationship Specialty Start Date End Date Elsewhere, Pcp PCP - General Internal Medicine 07/07/24 documented as of this encounter
--- OUTSIDE RECORDS SUMMARY | 2025-01-08 14:48 | XMS_ITS | Encounter Summary ---
Author Organization [facility] Address [address] [place] [address] Care Team Providers Care Pre Sales Technical Engineer Name Role Phone Elsewhere, Pcp Primary Care Provider Unavailabl e Encounter Details Date Type Department Care Team (Late st Contact Info) Description 04/19/2008 Historical Ophthalmology [facility] Demetrius Wagner M.D. 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 - 04/19/2008 9:40 AM CDT Eye General CHIEF COMPLAINT blurred vision HISTORY OF PRESENT ILLNESS The patient describes blurred vision in right eye for the past several months, she was diagonosed with fuchs about 10-15 years ago. this has progressively gotten worse. now more symptomatic. affecting her daily activities. denies flashing lights, or diplopia, occasional floaters/ does see ghosting of images at times. Worse on cloudy and humid days. Initially has 20/20 vision after cataract surgery. IMPRESSION / REPORT / PLAN Consult requested by: Sha Isaacs M.D. 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 Patient has good understanding of issues and wishes to proceed with DSEK eye based on the degree of degradation of vision and light sensitivity; and based on patient's f unctional needs. 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
--- OUTSIDE RECORDS SUMMARY | 2025-01-08 14:48 | XMS_ITS | Encounter Summary ---
Author Organization [facility] Address [address] [place] [address] Care Team Providers Care Recording Studio Internship Name Role Phone Elsewhere, Pcp Primary Care Provider Unavailabl e Encounter Details Date Type Department Care Team (Late st Contact Info) Description 11/30/2014 Historical Ophthalmology [facility] Sha Isaacs Jr., M.D. 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 - 11/30/2014 3:09 PM CDT Eye General CHIEF COMPLAINT Complete Exam- OCT- Glaucoma HISTORY OF PRESENT ILLNESS Pt states that her near [place] most recently has decreased. Distance vision is stable. ROS good generalhealth- heart and lungs WNL OCT Glaucoma completed CDM Reports - EYEGEN Id: [id number] Status: Fnl documented in this encounter Plan [...] documented as of this encounter Care Teams Recording Studio Internship Relationship Specialty Start Date End Date Elsewhere, Pcp PCP - General Internal Medicine 07/07/24 documented as of this encounter
--- OUTSIDE RECORDS SUMMARY | 2025-01-08 14:48 | XMS_ITS | Encounter Summary ---
Author Organization [facility] Address [address] [place] [address] Care Team Providers Care Payroll Human Resources Assistant Name Role Phone Elsewhere, Pcp Primary Care Provider Unavailabl e Encounter Details Date Type Department Care Team (Late st Contact Info) Description 04/03/2015 Historical Ophthalmology [facility] Magnus Fontana M.D. 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 - 04/03/2015 10:01 AM CDT Eye General CHIEF COMPLAINT S/P DSEK, left eye February 08 HISTORY OF PRESENT ILLNESS pt notes since starting new PRednisolone- the RE has been itching and irritated.( uses it 1xday in the RE) the LE has been fine. vision seems pretty stable.- it is difficult for her to read. IMPRESSION / REPORT / PLAN #1 s/p Descemet stripping endothelial keratoplasty, left eye. Doing well. Prednisolone acetate 1%, 1 drop 2x/day Follow-up in [address] Isaacs (if he is not available, can be seen here).....recommend reducing steroid to 1x/day at that time and monitoring disc/IOP. 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 D/c Pred acetate 1%. Start FML 0.1% qD. (See below).....I asked her to change to this in December (was prescribed then......[facility], [place]....if no Rx on file, she will call us to send again). #3 Pseudophakia, both eyes Stable in bag. #4 Glaucoma suspect, right>left eye Based on cupping. KIMBERLEY visual field normal OS, early arcuate changes OD. Change steroid as above for OD....Recheck IOP next viist (with Dr. Isaacs or here). #5 Conjunctivochalasis, right eye Might contribute to her symptoms OD Discussed, observe. DIAGNOSIS #1 s/p Descemet stripping endothelial keratoplasty, left eye. #2 Fuchs endothelial dystrophy #3 Pseudophakia, both eyes #4 Glaucoma suspect, right>left eye #5 Conjunctivochalasis, right eye CDM Reports - EYEGEN Id: [id number] Status: Fnl documented in this encounter Plan [...] documented as of this encounter Care Teams Payroll Human Resources Assistant Relationship Specialty Start Date End Date Elsewhere, Pcp PCP - General Internal Medicine 07/07/24 documented as of this encounter
--- OUTSIDE RECORDS SUMMARY | 2025-01-08 14:48 | XMS_ITS | Clinical Summary ---
Author Organization [facility] Address [address] [place] [address] Care Team Providers Care Diabetes Manager Name Role Phone Elsewhere, Pcp Primary Care Provider Unavailabl e Source Comments Patient records contain information from all sites at [facility]. For routine questions regarding patient records, call [phone] during business hours, M-F 8:00 AM - 5:00 PM Central Time. Record requests for emergency care only can be directed to [phone] at any time.[facility] Allergies Active Allergy Reactions Criticality Noted Date Comments Amlodipine Itching,GI intolerance,Headac he 04/10/2010 ITCHING, H/A, INTOLERANCE Codeine GI intolerance,Nausea Only 11/21/2009 Cerner lists nausea and vomiting Doxazosin Tinnitus 03/03/2010 TINNITUS Cerner lists reactions as Buzzing in ear, forgetful and head being squeezed. Hydrochlorothiazide Itching,Rash Low 12/03/2009 Lisinopril Cough 11/21/2009 Other reaction(s): Cough Losartan Rash Low 02/12/2010 Paroxetine Other (see comments) 02/24/2018 Unknown per patient Paroxetine Hcl Other (see comments) 04/25/2011 Cerner lists dizziness as a reaction Propoxyphene GI intolerance 09/23/2023 Propoxyphene N-Acetaminophen Nausea And Vomiting 12/03/2009 Topiramate GI intolerance 11/27/2010 Cerner lists nausea and dizziness as reactions Zinc GI intolerance 09/23/2023 Zinc Gluconate Diarrhea 03/28/2011 Cerner lists sick and diarrhea as reactions Medications * This document contains information received from the source organization and may not represent a complete record from that organization. latanoprost (XALATAN) 0.005 % ophthalmic solution Administer 1 drop into both eyes at bedtime. 1 03/30/20 18 Active timolol (TIMOPTIC) 0.5 % ophthalmic solution Administer 1 drop into the right eye 2 (two) times a day. 03/02/20 21 Active inhalational spacing device (Aerochamber MV) spacer Use with inhalers. 1 each 2 08/15/19 22 Active acetaminophen (TYLENOL) 500 mg tablet Take 1,000 mg by mouth every 6 (six) hours as needed. Active triamcinolone (KENALOG) 0.1 % cream Apply 1 Application topically 3 (three) times a day. 09/05/19 23 Active clobetasoL (TEMOVATE) 0.05 % ointmentIndica tions:Lichen Sclerosus APPLY OINTMENT TOPICALLY TO AFFECTED AREA TWICE DAILY 30 g 10/26/19 23 Active Additional Information Patient taking differently: 1 Application topical Daily PRN, Reported on 07/05/2024 albuterol 90 mcg/actuation inhalerIndicat ions:Chronic Cough INHALE 2 PUFFS BY MOUTH EVERY 4 HOURS NEEDED FOR WHEEZING 54 g 3 11/27/19 23 Active Additional Information Patient taking differently: 2 puff Every 6 hours PRN, wheezing, shortness of breath, Reported on 07/05/2024 nystatin (Mycostatin) 100,000 unit/gram cream Apply 1 Application topically daily as needed. Active peg 400-propylene glycol (Systane) 0.4-0.3 % ophthalmic solution Administer 1 drop into the left eye 3 (three) times a day as needed for dry eyes. Active camphor-mentho L ([place]) 11-11 % ointment Apply topically as needed. Per SNF EHR: Special Instructions: Rub up to 5x/day as needed then warm compress over right lower back Active butalbital-xander taminophen-caf f (Fioricet) 50-300-40 mg per capsuleIndicat ions:Chronic Pain/Nonacute Pain Take 1 capsule by mouth 3 (three) times a day as needed for headaches Indication: Chronic Pain/Nonacute Pain. 90 capsule 06/30/20 24 Active Synthroid 50 mcg tablet Take 2 tablets (100 mcg total) by mouth daily before morning meal. TAKE 2 TABLETS BY MOUTH ONCE DAILY BEFORE BREAKFAST . 60 tablet 07/05/20 [address] Active aspirin [address] tablet Take 1 tablet (81 mg total) by mouth daily. 30 tablet 07/05/20 24 Active metoprolol tartrate (Lopressor) 25 mg tablet Take 1 tablet (25 mg total) by mouth 2 (two) times a day. 60 tablet 07/05/20 24 Active valsartan (Diovan) 80 mg tablet Take 1 tablet (80 mg total) by mouth daily. 30 tablet 07/05/20 24 Active NIFEdipine (Adalat CC) 60 mg ER tablet Take 1 tablet (60 mg total) by mouth daily. 30 tablet 07/05/20 24 Active fluticasone furoate (Arnuity Ellipta) 100 mcg/actuation diskus inhaler Inhale 1 puff daily. 30 each 07/05/20 24 Active Eliquis 5 mg tablet Take 1 tablet by mouth twice daily 60 tablet 01/04/20 25 Active Eliquis 5 mg tablet Take 1 tablet by mouth twice daily 60 tablet 12/03/19 25 025 Discontinued Active Problems Patient Care Coordination No te Formatting of this note migh t be different from the original. 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 Primary Osteoarthritis Hip Bilateral 09/23/2019 Varicose Vein Lower Extremity Bilateral 09/23/19 20 Overview (09/23/2019): She had vein stripping. 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 She is aware of complications. She was referred to [facility]. She did not go on appointment, 03/01/2013. 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 Systolic B/P 220's. 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 She is now normotensive and hemodynamically stable. B/P today 114/71. 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 Varicose Vein Lower Extremity With Pain 12/21/19 14 Radiculopathy Lumbar 12/15/2013 Urinary Urge Incontinence 08/13/2013 Degeneration Disc Lumbar 01/07/2013 Loss Hearing Sensorineural Bilateral 09/02/2012 Keratosis Actinic 07/09/2012 Adjustment Disorder With Depressed Mood 04/12/20 11 Alopecia 02/28/2011 Bursitis Trochanteric Left 01/01/2011 Hyperkalemia 11/13/2010 Dystrophy Corneal Endothelial 08/06/2010 Incontinence Urinary Stress Female 03/03/2010 Diverticulosis Colon 12/03/2009 Other Irritable Bowel Syndrome 12/03/2009 Polyp Colon 12/03/2009 Rectocele 12/03/2009 Paresthetica Meralgia 2009 Neuropathy Peripheral 2009 Polyneuropathy 04/17/2009 Gastroesophageal Reflux Disease NOS 06/03/2008 Resolved Problems Problem Noted Date Diagnosed Date Resolved Date Infection Respiratory Lower 10/06/2019 05/26/2020 Overview (10/06/2019): Respiratory infection Assessment & Plan (10/06/2019 12:50 PM 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): Influenza swab is negative for A B and RSV. She became ill approximately 10 days ago. She has a tight cough with wheezing. She feels she is not able to kick this infection herself. She called the nurse line an appointment was made. EXAM: DX CHEST AP OR PA AND LATERAL 2 VIEWS COMPARISON: May 20, 2018. IMPRESSION: Moderately prominent lower thoracic/upper lumbar curve convex right. Calcified thoracic aorta new, ill-defined interstitial opacity along the medial aspect of the right midlung could represent possible developing interstitial pneumonitis, recommend follow-up imaging in 6 weeks for confirmation of radiographic resolution/improvement of above stated pulmonary findings. She was given a DuoNeb in the clinic which improved her symptoms. She was no longer wheezing. She will schedule her albuterol inhaler at home 4 times a day for the next 3 days. She will be placed on a short course of prednisone with Zithromax. She will return if needed. 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 0 Floater Vitreous Bilateral 09/05/2017 0 04/13/2018 Dystrophy Fuchs' Endothelial 09/05/2017 05/26/2020 Deficiency Urethral Sphincter Intrinsic 09/05/2017 05/26/2020 Atrophy Vagina Due To Estrogen Deficiency 12/05/2016 05/26/2020 Chalazion Left 10/22/2016 09/05/2017 Intertrigo 03/08/2014 05/26/2020 Tinea Pedis 12/30/2013 04/13/2018 Fatigue 12/15/2013 05/26/2020 Glaucoma 12/15/2013 05/26/2020 Ptosis Eyelid Myogenic Right 08/02/2013 04/13/2018 Loss Hearing Conductive Unilateral 09/02/2012 05/26/2020 Tumor Skin Uncertain Behavior 07/09/2012 04/13/2018 Prolapse Vaginal Vault Post Hysterectomy 05/26/2012 05/26/2020 Ptosis Eyelid Bilateral 04/09/201204/04 Wart 03/10/2012 04/13/2018 Pain Knee 10/31/2011 04/13/2018 Pain Shoulder 03/28/2011 04/13/2018 Pain Low Back Unspecified 02/28/2011 Pain Hip 01/01/2011 04/13/2018 Dizziness 11/05/2010 04/13/2018 Tinnitus 11/05/2010 04/13/2018 Skin Disorder 04/24/2010 04/13/2018 Pruritus 04/10/2010 04/13/2018 Incomplete Bladder Emptying 03/09/2010 10/06/2020 Prolapse Vaginal 03/03/2010 04/13/2018 Constipation 12/03/2009 05/26/2020 Elevated Liver Enzyme Test 12/03/2009 1 Pain Limb Generalized 04/20/20092017 Neuropathy Autonomic 04/17/2009 018 Sciatica 04/17/2009 10/11/2017 Degeneration Macular Dry Nonexudative 11/14/2008 05/26/2020 Opacity Vitreous 07/14/2008 05/26/2020 Reflux Esophageal 06/03/2008 04/13/2018 Dermatitis Photocontact 03/18/200704/04 Screening Examination Skin Cancer 03/18/2007 04/13/2018 Photodamage 03/18/2007 04/13/2018 Tattoo 03/18/2007 04/13/2018 Encounters * This document contains information received from the source organization and may not represent a complete record from that organization. Date Type Department Care Team Description 01/03/2025 Refill [facility] [phone] Isabel Gómez MPAS, P.A.-C. Med Refill 12/02/2024 Refill [facility] [address] [phone] Isabel Gómez MPAS, P.A.-C. Med Refill from Last 3 Months Immunizations Immunization Administration Dates Next Due DT, Pediatric 10/01/2007 HZV (ZOSTAVAX) 03/01/2010 Influenza Split 06/04/2013 Influenza high dose QV(65 ye ars or older) (PF) 06/13/2023,06/12/2022,05/17/2020 Influenza, Injectable, Mdck, Preservative Free, Quadrivalent 07/30/2013 Influenza, Seasonal, Injectable 06/23/20 12,06/02/2009,05/17/2008,2005 Influenza, Unspecified 05/06/2017,2015,05/25/2015,2013,07/30/2013,06/23/2012,07/09/2010,1 OPV 07/31/1989 PCV13 08/29/2014 PPSV23 05/30/2003 RZV (SHINGRIX) 03/24/2019,09/29/2017 SARS-COV-2 (COVID-19) - PFIZ ER (Discontinued)(12 years or older) 10/15/2021(Deferred: Patient Refused),05/11/2021,10/19/2020 Td Preservative Free (TENIVA C, DECAVAC) 05/17/2020,10/01/2007 Td, (Adult) Unspecified 10/01/2007 Tdap 10/02/2006 Typhoid, Unspecified 07/31/1989 influenza trivalent high dos e (HD)(PF) 04/30/2019,04/30/2018,05/06/2017,2015,05/25/2015 Family History Medical History Relation Name Comments Thyroid disease Daughter 1 Alycia Thyroid disease Daughter 2 Lung cancer Father alea paro CABG - Coronary artery bypas s graft Mother adriano meder Coronary artery disease Mother adriano meder Depression Mother adriano meder Endometrial cancer Mother adriano meder Hypertension Mother adriano meder Ovarian cancer Mother adriano meder Stroke Mother adriano meder Thyroid disease Mother adriano meder Varicose Veins Mother adriano meder Alcohol abuse Other grandparents DM - Diabetes mellitus Paternal Grandmother Eczema Sister eczema/psoriasi s Anesthesia problems Neg Hx Bleeding Disorder Neg Hx DVT - Deep vein thrombosis Neg Hx PE - Pulmonary embolism Neg Hx Relation Name Status Comments Daughter 1 Alycia Alive Daughter 2 Father alea paro (Age 49) Mother adriano meder (Age 81) Other grandparents Paternal Grandmother Sister Social History Tobacco Use Types Packs/Day Years Used Date Smoking Tobacco: Never Smokeless Tobacco: Never Tobacco Cessation:Counseling Given: Not Answered Alcohol Use Standard Drinks/Week Comments Yes 1 (1 standard drink = 0.6 oz pur e alcohol) AUDIT-C Answer Date Recorded Q1: How often do you have a drink containing alcohol? 4 or more times a week 06/02/2020 Q2: How many drinks containi ng alcohol do you have on a typical day when you are drinking? 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 Gender Identity Female 12/14/2018 11:12 AM CDT Sexual Orientation Straight 12/14/2018 11 :12 AM CDT Occupation Industry Job Start Date Job End Date Not on file Not on file Not on file Not on file Last Filed Vital Signs Vital Sign Reading Time Taken Comments Blood Pressure 114/71 07/05/2024 9:02 AM 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 Pulse 80 07/05/2024 9:02 AM 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 Temperature 36.7 C (98 F) 07/05/2024 9:02 AM 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 Respiratory Rate 16 07/05/2024 9:02 AM 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 Oxygen Saturation 93% 07/05/2024 9:02 AM 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 Inhaled Oxygen Concentration - - Weight 70.5 kg (155 lb 6.4 oz) 07/05/2024 9:02 A M 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 Height 157.5 cm (5' 2) 07/05/2024 9:02 AM 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 Body Mass Index 28.42 07/05/2024 9:02 AM 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 Plan of Treatment Health Maintenance Due Date Last Done Comments IPV Vaccines (2 of 3 - Adult catch-up series) 08/28/1989 07/31/1989 RSV vaccine - (32-3 6 weeks) or 60+ years (1 - 1-dose 75+ series) 2012 COVID-19 Vaccine (3 - 2023-2 5 season) 2024 05/11/2021, 10/19/2020 Influenza Vaccine (#1) 2024 , 06/12/2022, 05/17/2020, Additional history exists Depression Screening (Annual PHQ-2) 08/04/2024 Fall Risk Screen (Annual) 08/04/2024 Fasting Glucose for Diabetes Screening 10/11/2025 10/11/2024, 10/09/2024, 06/24/2024, Additional history exists Creatinine Level (Kidney Fun ction Test) 10/12/2025 10/12/2024, 10/11/2024, 10/10/2024, Additional history exists Potassium Level 10/12/2025 10/12/2024, 10/02, 10/10/2024, Additional history exists Sodium Level 10/12/2025 10/12/2024, 10/02, 10/09/2024, Additional history exists DTaP,Tdap,and Td Vaccines (6 - Td or Tdap) 05/17/2030 05/17/2020, 10/01/2007, 10/01/2007, Additional history exists Colonoscopy Discontinued 08/08/2008 (Perf ormed elsewhere), 01/04/2004 Pneumococcal vaccine (50+ years) Completed 08/29/19 15, 05/30/2003 Zoster Vaccines Completed 03/24/2019, 09/05, 03/01/2010 Cologuard Discontinued 05/24/2020 [address]orectal Cancer Surveillance Discontinued CT Colonography Discontinued Medical Devices Implanted Type Area Net Washer Device Identifier Shelf Expiration Date Model / Serial / Lot Lou-04/26/2010 Implanted:04/05 by Damon Guy M.D. (Quantity not on file) Mesh or Patch Urethra Description:GRAFT/IMPLANT IN FORMATION Lot/Serial #: [id number], Catalog/Model #: [id number], Implant Name: lou vicente suprapubic surgical kit, Net Washer: Coloplast Karla. Cornea - Rwoe [id number] Implanted:Qty: 1 on 06/08/2008 Ocular (Eye) Implant Right: Other/Legacy - See Implant Description [facility] Description:Device Manufactu rer - [facility]. Body Location - Right. Device Status Text - [id number]. Cornea - Rowe [id number] Implanted:Qty: 1 on 02/08/2015 Ocular (Eye) Implant Other/Legacy - See Implant Description [facility] Description:Device Manufactu rer - [facility]. Body Location - Other. Left. Device Status Text - [id number]. Ocular Lens-05/04/2002 Implanted:08/2001 (Quantity not on file) Ocular Lens Left: Eye Ocular Lens-05/01/2006 Implanted:04/05 (Quantity not on file) Ocular Lens Right: Eye Sling Lou Suprapubic Surgical Kit - Rowe [id number] Implanted:Qty: 1 on 04/26/2010 Urogenital Implant Other/Legacy - See Implant Description Coloplast Description:Device Manufactu rer - Coloplast Karla. Body Location - Other. Not Applicable. Device Status Text - [id number]. Procedures Procedure Name Priority Date/Time Associated Diagnosis Comments BASIC METABOLIC PANEL, S/P Routine 01/18/2022 12:14 PM CDT Lightheadedness COLOGUARD Routine 05/24/2020 7:22 AM CDT Screening Colon Cancer Average Risk from Last 3 Months or Most Recently Relevant to Health Maintenance Results * Cologuard (05/24/2020 7:22 AM CDT) Pathologist [facility] Result Negative Not Applicable 05/31/2020 9:24 AM CDT [facility] Comment: A negative result indicates a low likelihood that a colorectal cancer (CRC) or an advanced adenoma (adenomatous polyps with more advanced pre-malignant features) is present. The chance that a person with a negative Cologuard test has a colorectal cancer is less than 1 in 1500 (negative predictive value >99.9%) or has an advanced adenoma is less than 5.3% (negative predictive value 94.7%). These data are based on a prospective cross-sectional screening study of 10,000 individuals at average risk for colorectal cancer who were screened with both Cologuard and colonoscopy. (Asha Sevilla al, N Engl J Med 2014;370(14):2082-0381) The normal value (reference range) for this assay is negative. COLOGUARD RE-SCREENING RECOMMENDATION: Periodic routine colorectal cancer screening is an important part of preventive healthcare for asymptomatic persons at average risk for colorectal cancer. Following a negative Cologuard result, the [place] [employer] Society and U.S. Multi-Society Task Force screening guidelines recommend a Cologuard re-screening interval of 3 years. References: [place] [employer] Society (ACS). Colorectal cancer prevention and early detection. [place], [place]: [place] [employer]; [updated 2016 Apr 24]. https://www.cancer.org/cancer/tlryg-pvrogv-broodn/detection- diagnosis-staging/acs-recommendations.html. Accessed April 03, 2018; Antelmo WHELAN, Bambi VILLARREAL, Fermín SAAVEDRA, Colorectal Cancer Screening: Recommendations for Physicians and Patients from the U.S. Multi-Society Task Force on Colorectal Cancer Screening, Am J Gastroenterology 2017; 112:6446-7462. TEST TYPE: Composite algorithmic analysis of stool DNA-biomarkers with hemoglobin immunoassay. Quantitative values of individual biomarkers are not reportable and are not associated with individual biomarker result reference ranges. PRECAUTIONS AND LIMITATIONS: Cologuard is intended for colorectal cancer screening of adults of either sex, 45 years or older, who are at average-risk for colorectal cancer (CRC). Cologuard has been approved for use by the U.S. FDA. Cologuard may produce a false negative or false positive result. A negative Cologuard test result does not guarantee the absence of CRC or advanced adenoma (pre-cancer). Patients with a negative Cologuard test result should be advised to continue participating in a colorectal cancer screening program. The screening interval for Cologuard is currently recommended at an interval of every 3 years by the [place] [employer] Society and U.S. Multi-Society Task Force. A false positive result occurs when Cologuard produces a positive result, even though a colonoscopy may not find colorectal cancer or precancerous polyps. The performance of Cologuard has been established in a cross sectional study (i.e., single point in time) of average-risk adults aged 50-84. Cologuard performance in patients ages 45 to 49 years was estimated by sub-group analysis of near-age groups. Cologuard performance data in a 10,000 patient pivotal study using colonoscopy as the reference method can be accessed at the following location: www.PayAllies.com/results. Additional description of the Cologuard test process, warnings and precautions can be found at www.cologuardtest.com. Rx only. Stool (Stool) 05/24/2020 7:2 2 AM CDT 05/25/2020 11:15 AM CDT Markel Patel D.O. LAB BODY FLUIDS AND S TOOLS ORDERABLES Final Result [address] [place] [address] EX[facility] [address] [facility], [address] [place] [address] from Last 3 Months or Most Recently Relevant to Health Maintenance Insurance [id number] [phone] [facility] MEDICARE Care Teams Diabetes Manager Relationship Specialty Start Date End Date Elsewhere, Pcp PCP - General Internal Medicine 07/07/24
--- OUTSIDE RECORDS SUMMARY | 2025-01-08 14:48 | XMS_ITS | Encounter Summary ---
Author Organization [facility] Address [address] [place] [address] Care Team Providers Care Contract Clerk Automobile Name Role Phone Elsewhere, Pcp Primary Care Provider Unavailabl e Encounter Details Date Type Department Care Team (Late st Contact Info) Description 01/11/2015 Historical Ophthalmology [facility] Sha Isaacs Jr., M.D. 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 - 01/11/2015 2:12 PM CDT Eye General CHIEF COMPLAINT work in HISTORY OF PRESENT ILLNESS Right eye has been red, painful, itchy and swollen - going on off and on for a while. Feels like tobradex is making it worse, is supposed to use 4x/day, cut herself down to 2x/day. No hasn't used for the past 3 days. Maybe a little better since she has stopped using the drop. Not using any other drops. IMPRESSION / REPORT / PLAN A) Conjunctivirtis, trichiasis P) RTO prn, Maxitrol drops and ointment CDM Reports - EYEGEN Id: [id number] Status: Fnl documented in this encounter Plan [...] documented as of this encounter Care Teams Contract Clerk Automobile Relationship Specialty Start Date End Date Elsewhere, Pcp PCP - General Internal Medicine 07/07/24 documented as of this encounter
--- OUTSIDE RECORDS SUMMARY | 2025-01-08 14:48 | XMS_ITS | Encounter Summary ---
Author Organization [facility] Address [address] [place] [address] Care Team Providers Care Control Integration Engineer Name Role Phone Elsewhere, Pcp Primary Care Provider Unavailabl e Encounter Details Date Type Department Care Team (Late st Contact Info) Description 05/08/2009 Historical Ophthalmology [facility] Demetrius Wagner M.D. Social History Tobacco Use Types Packs/Day Years Used Date Smoking Tobacco: Never Assessed Comments Unknown Sex and Gender Information Value Date Recorded Sex Assigned at Female 12/14/2018 11:12 AM CDT Legal Sex Female 10:46 PM SEED ANALYST Gender Identity Female 12/14/2018 11:12 AM CDT Sexual Orientation Straight 12/14/2018 11 :12 AM CDT documented as of this encounter Progress Notes * Demetrius Wagner M.D. - 05/08/2009 8:58 AM CDT Eye General CHIEF COMPLAINT 6 month recheck DSEK Rt HISTORY OF PRESENT ILLNESS Patient states vision is very good, occasional dryness only. IMPRESSION / REPORT / PLAN #1 Fuchs left eye #2 IOL Plan; Same rx RV 1 yr DIAGNOSIS #1 Fuchs #2 IOL CDM Reports - EYEGEN Id: [id number] Status: Fnl documented in this encounter Plan [...] documented as of this encounter Care Teams Control Integration Engineer Relationship Specialty Start Date End Date Elsewhere, Pcp PCP - General Internal Medicine 07/07/24 documented as of this encounter
--- OUTSIDE RECORDS SUMMARY | 2025-01-08 14:48 | XMS_ITS | Encounter Summary ---
Author Organization [facility] Address [address] [place] [address] Care Team Providers Care Sales Engineer Account Manager Name Role Phone Elsewhere, Pcp Primary Care Provider Unavailabl e Encounter Details Date Type Department Care Team (Late st Contact Info) Description 02/09/2015 Historical Ophthalmology [facility] O[facility] Tera Knig M.D. Social History Tobacco Use Types Packs/Day Years Used Date Smoking Tobacco: Never Assessed Comments Unknown Sex and Gender Information Value Date Recorded Sex Assigned at Female 12/14/2018 11:12 AM CDT Legal Sex Female 10:46 PM ASSISTANT AT SURGERY Gender Identity Female 12/14/2018 11:12 AM CDT Sexual Orientation Straight 12/14/2018 11 :12 AM CDT documented as of this encounter Progress Notes * Tera King M.D. - 02/09/2015 12:02 AM CDT Eye General CHIEF COMPLAINT left eye pain. HISTORY OF PRESENT ILLNESS SDM: Patient reports that left eye pain started shortly after arriving home at 1-2PM. She reports ascratchy type pain that has been persistent and has occasional jolts of sharp pain. She has more ofthese episodes of sharp pain when she blinks. She reports opening her eye under the patch and wonders if she scratched the eye. She had DSAEK this morning with Dr. Fontana. IMPRESSION / REPORT / PLAN #1 Corneal abrasion, left eye #2 POD1 DSEK, left eye Pain started a few hours after her DSEK procedure today. She thinks she probably opened her eye underneath her eye patch. She has a small corneal abrasion on exam with edges that appear to be migrating centrally. Bubble and graft are in proper position, pupil is widely dilated, and IOP is wnl. No concern for pupillary block. Indeed her pain was completely relieved with instillation of proparacaine. Plan: -- Erythromycin ointment placed tonight -- Follow-up appointment with Dr. Fontana already arranged for tomorrow -- Discussed post-operative instructions - shield in place overnight DIAGNOSIS #1 Corneal abrasion, left eye #2 POD1 DSEK, left eye CDM Reports - EYEGEN Id: [id number] Status: Fnl documented in this encounter Plan [...] documented as of this encounter Care Teams Sales Engineer Account Manager Relationship Specialty Start Date End Date Elsewhere, Pcp PCP - General Internal Medicine 07/07/24 documented as of this encounter
--- OUTSIDE RECORDS SUMMARY | 2025-01-08 14:48 | XMS_ITS | Encounter Summary ---
Author Organization [facility] Address [address] [place] [address] Care Team Providers Care Milk Driver Name Role Phone Elsewhere, Pcp Primary Care Provider Unavailabl e Encounter Details Date Type Department Care Team (Late st Contact Info) Description 12/19/2014 Historical Ophthalmology [facility] O[facility] Magnus Fontana M.D. 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 - 12/19/2014 8:40 AM CDT Eye General CHIEF COMPLAINT near vision blur, Corneal endothelial dystrophy HISTORY OF PRESENT ILLNESS Blurred vision; both eyes; x several years; slowly progressive; symptoms occur primarily when reading small print. Distance vision stable. She is wondering if she needs to have the cornea surgery on the left eye. 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 No diurnal variation. 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 VIsually significant left eye, and left cornea thicker than right cornea despite DSEK OD....discussed options. She wants to proceed with DMEK. Plan: DMEK, left eye I discussed the risks, benefits and alternatives to corneal transplantation in detail with the patient and whoever else was present. The patient verbalizes understanding and wishes to proceed with surgery. Also discussed the necessity of other members of the surgical team participating in the interventional procedure. Some of the risks discussed include loss of vision, infection, intraoperative hemorrhage, inflammation, postoperative glaucoma, graft rejection, graft failure, pupillary block andgraft dislocation that may require further procedures. MAC. Order tissue. #2 Pseudophakia, both eyes Stable in bag. #3 Glaucoma suspect, right>left eye Based on cupping. OCT nerve from 11/30 confirms thinning of inferior rim OD. Recommend KIMBERLEY OU and disc photos, and consider decreasing pred acetate. The following tests have been completed and need interpretation. Fundus photos Photo Interpretation: Photos confirm and document clinical findings of diagnosis and are of sufficient quality to permittheir use to follow disease progression. KIMBERLEY visual field normal OS, early arcuate changes OD. DIAGNOSIS #1 Fuchs endothelial dystrophy #2 Pseudophakia, both eyes #3 Glaucoma suspect, right>left eye CDM Reports - EYEGEN Id: [id number] Status: Fnl documented in this encounter Plan [...] documented as of this encounter Care Teams Milk Driver Relationship Specialty Start Date End Date Elsewhere, Pcp PCP - General Internal Medicine 07/07/24 documented as of this encounter
--- OUTSIDE RECORDS SUMMARY | 2025-01-08 14:48 | XMS_ITS | Encounter Summary ---
Author Organization [facility] Address [address] [place] [address] Care Team Providers Care Core Layer Machine Operator Name Role Phone Elsewhere, Pcp Primary Care Provider Unavailabl e Encounter Details Date Type Department Care Team (Late st Contact Info) Description 08/02/2013 Historical Ophthalmology [facility] OPH Jose Stacy M.D. [address] [place] [address] Social History Tobacco Use Types Packs/Day Years Used Date Smoking Tobacco: Never Assessed Comments Unknown Sex and Gender Information Value Date Recorded Sex Assigned at Female 12/14/2018 11:12 AM CDT Legal Sex Female 10:46 PM OFFSHORE WIND OPERATIONS MANAGER Gender Identity Female 12/14/2018 11:12 AM CDT Sexual Orientation Straight 12/14/2018 11 :12 AM CDT documented as of this encounter Progress Notes * Jose Stacy M.D. - 08/02/2013 2:00 PM CST Eye General CHIEF COMPLAINT Droopy Eyelid right eye HISTORY OF PRESENT ILLNESS Since last visit here in May 2009, has been under the care of Dr. Isaacs in [place]; records available through [facility]. Here today re ptosis of the right upper eyelid Increasingly finds that the peripheral visual field is restricted, interfering with reading, driving, and other activities of daily living. No previous eyelid surgery. No double vision or systemic muscle weakness. Uses artificial tears for dry eye symptoms. 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 Perimetry documented superior visual field restriction to < 10 above fixation for the right eye, with > 25 improvement when eyelid raised manually to normal position. Options include observation or ptosis repair. Surgery is reasonable; risks and expectations thoroughly discussed. The patient understands and wishes to proceed. Uncertainties of Medicare reimbursement discussed. Patient asked to avoid aspirin, NSAIDs, and other anticoagulants for 10 days preoperatively if medically safe to do so. Photograph taken for insurance purposes. DIAGNOSIS #1 Ptosis, right upper eyelid CDM Reports - EYEGEN Id: [id number] Status: Fnl documented in this encounter Plan [...] documented as of this encounter Care Teams Core Layer Machine Operator Relationship Specialty Start Date End Date Elsewhere, Pcp PCP - General Internal Medicine 07/07/24 documented as of this encounter
--- OUTSIDE RECORDS SUMMARY | 2025-01-08 14:48 | XMS_ITS | Encounter Summary ---
Author Organization [facility] Address [address] [place] [address] Care Team Providers Care Business Solution Analyst Name Role Phone Elsewhere, Pcp Primary Care Provider Unavailabl e Reason for Visit * Reason Comments Med Refill Encounter Details Date Type Department Care Team (Late st Contact Info) Description 12/02/2024 Refill [facility] in [facility] [address] [place] [phone] Isabel Gómez, ALEXS, P.A.-C. [address] [place] [address] [phone] Med Refill Social History Tobacco Use Types Packs/Day Years Used Date Smoking Tobacco: Never Smokeless Tobacco: Never Alcohol Use Standard Drinks/Week Comments Yes 1 [...] AM CDT Legal Sex Female 10:46 PM FLAT KNITTER Gender Identity Female 12/14/2018 11:12 AM CDT Sexual Orientation Straight 12/14/2018 11 :12 AM CDT Occupation Industry Job Start Date Job End Date Not on file Not on file Not on file Not on file documented as of this encounter Miscellaneous Notes * Telephone Encounter - Emily Phillips L.P.N. - 12/02/2024 4:52 PM CDT SUBJECTIVE CHIEF COMPLAINT / REASON FOR CALL Med Refill PLAN The following information was provided: Patient notified of Isabel's recommendation. Information/Education: patient/caller able to teach back The following references were used: provider Isabel Gómez PA-C documented in this encounter Plan of Treatment Not on file documented as of this encounter Visit Diagnoses Not on filedocumented in this encounter Additional Health Concerns Assessment Noted Time PHQ-9 Depression Total Score: 1 12/15/19 19 11:13 AM CDT documented as of this encounter Care Teams Business Solution Analyst Relationship Specialty Start Date End Date Elsewhere, Pcp PCP - General Internal Medicine 07/07/24 documented as of this encounter
--- OUTSIDE RECORDS SUMMARY | 2025-01-08 14:48 | XMS_ITS | Encounter Summary ---
Author Organization [facility] Address [address] [place] [address] Care Team Providers Care Senior Sustainability Advisor Name Role Phone Elsewhere, Pcp Primary Care Provider Unavailabl e Encounter Details Date Type Department Care Team (Late st Contact Info) Description 06/14/2008 Historical Ophthalmology [facility] OPH Demetrius Wagner M.D. Social History Tobacco Use Types Packs/Day Years Used Date Smoking Tobacco: Never Assessed Comments Unknown Sex and Gender Information Value Date Recorded Sex Assigned at Female 12/14/2018 11:12 AM CDT Legal Sex Female 10:46 PM [place] SEAMER Gender Identity Female 12/14/2018 11:12 AM CDT Sexual Orientation Straight 12/14/2018 11 :12 AM CDT documented as of this encounter Progress Notes * Demetrius Wagner M.D. - 06/14/2008 3:00 PM CST Eye Postoperative MULTI-VISIT DOCUMENT This document contains multiple patient visits and is available for review in Document Viewer. CDM Reports - EYEPO Id: [id number] Status: Fnl documented in this encounter Plan [...] documented as of this encounter Care Teams Senior Sustainability Advisor Relationship Specialty Start Date End Date Elsewhere, Pcp PCP - General Internal Medicine 07/07/24 documented as of this encounter
--- OUTSIDE RECORDS SUMMARY | 2025-01-08 14:48 | XMS_ITS | Encounter Summary ---
Author Organization [facility] Address [address] [place] [address] Care Team Providers Care Director Of Category Management Name Role Phone Elsewhere, Pcp Primary Care Provider Unavailabl e Reason for Visit * Reason Comments Med Refill Encounter Details Date Type Department Care Team (Late st Contact Info) Description 01/03/2025 Refill Senior [facility] in [facility] [address] [place] [phone] Isabel Gómez, ALEXS, P.A.-C. [address] [place] [address] [phone] Med Refill Social History Tobacco Use Types [...] AM CDT Legal Sex Female 10:46 PM SKATESMAN Gender Identity Female 12/14/2018 11:12 AM CDT Sexual Orientation Straight 12/14/2018 11 :12 AM CDT Occupation Industry Job Start Date Job End Date Not on file Not on file Not on file Not on file documented as of this encounter Plan of Treatment Not on file documented as of this encounter Visit Diagnoses Not on filedocumented in this encounter Additional Health Concerns Assessment Noted Time PHQ-9 Depression Total Score: 1 12/15/19 19 11:13 AM CDT documented as of this encounter Care Teams Director Of Category Management Relationship Specialty Start Date End Date Elsewhere, Pcp PCP - General Internal Medicine 07/07/24 documented as of this encounter
--- OUTSIDE RECORDS SUMMARY | 2025-01-08 14:48 | XMS_ITS | Clinical Summary ---
Author Organization [facility] Address [address] [place] [address] Care Team Providers Care Boiler Fitter Name Role Phone Joe Brar MD Primary Care Provider [phone] Allergies Active Allergy Reactions Criticality Noted Date Comments Amlodipine 02/24/2018 ITCHING, H/A, INTOLERANCE Codeine Nausea 02/23/2018 Doxazosin 02/24/2018 TINNITUS Hydrochlorothiazide Rash Low 02/24/2018 Lisinopril Cough 02/24/2018 Losartan Rash Low 02/24/2018 Paroxetine 02/24/2018 Propoxyphene N-Apap 02/24/2018 Topiramate 02/24/2018 Zinc 02/24/2018 DIARRHEA Medications Levothyroxine Sodium (SYNTHROID PO) Take 50 mcg by mouth daily Take 2.5 tabs Active acetaminophen (TYLENOL) 500 MG tablet Take 500-1,000 mg by mouth every 6 hours as needed for mild pain Active albuterol (PROAIR HFA/PROVENTIL HFA/VENTOLIN HFA) 108 (90 Base) MCG/ACT Inhaler Inhale 2 puffs into the lungs every 6 hours Active ASPIRIN PO Take 81 mg by mouth Active estradiol (VAGIFEM) 10 MCG TABS vaginal tablet Place 10 mcg vaginally Active conjugated estrogens (PREMARIN) cream Place vaginally twice a week Active mometasone (NASONEX) 50 MCG/ACT spray Burt 1 spray into both nostrils daily Active prednisoLONE acetate (PRED FORTE) 1 % ophthalmic susp Place 1 drop into the right eye 4 times daily Active Propranolol HCl (INDERAL LA PO) Take 80 mg by mouth Active triamterene-hyd rochlorothiazid e (MAXZIDE-25) 37.5-25 MG per tablet Take 1 tablet by mouth daily Active nystatin (MYCOSTATIN) 657275 UNIT/GM POWD Active nystatin (MYCOSTATIN) ointment Apply topically 2 times daily Active triamcinolone (KENALOG) 0.1 % cream Apply topically 2 times daily Active traMADol (ULTRAM) 50 MG tabletIndicatio ns:Ptosis of both eyelids Take 1 tablet (50 mg) by mouth every 6 hours as needed for severe pain 20 tablet 8 Active erythromycin (ROMYCIN) ophthalmic ointmentIndicat ions:Ptosis of both eyelids Apply topically 3 times daily 2 Tube 1 8 Active Social History Tobacco Use Types Packs/Day Years Used Date Smoking Tobacco: Never Smokeless Tobacco: Never Alcohol Use Standard Drinks/Week Comments No 0 (1 standard drink = 0.6 oz pur e alcohol) Adolescent Education Answer Date Record ed Getting School Help Needed Not on file 06/28 Comments No Sex and Gender Information Value Date Recorded Sex Assigned at Not on file Legal Sex Female 8:58 AM CDT Gender Identity Not on file Sexual Orientation Not on file Last Filed Vital Signs Vital Sign Reading Time Taken Comments Blood Pressure 120/68 02/24/2018 1:00 PM CDT Pulse - - Temperature 37 C (98.6 F) 02/24/2018 8:51 AM CDT Respiratory Rate 12 02/24/2018 1:00 PM CDT Oxygen Saturation 95% 02/24/2018 1:00 PM CDT Inhaled Oxygen Concentration - - Weight 71.2 kg (157 lb) 02/24/2018 8:51 AM CDT Height 157.5 cm (5' 2) 02/24/2018 8:51 AM CDT Body Mass Index 28.72 02/24/2018 8:51 AM CDT Plan of Treatment Not on file Insurance [facility]IC[facility] [place] [facility] Care Teams Boiler Fitter Relationship Specialty Start Date End Date Joe Brar MD [address] [address] PCP - General Internal Medicine 02/18/18
--- OUTSIDE RECORDS SUMMARY | 2025-01-08 14:48 | XMS_ITS | Encounter Summary ---
Author Organization [facility] Address [address] [place] [address] Care Team Providers Care Fur Floor Worker Name Role Phone Elsewhere, Pcp Primary Care Provider Unavailabl e Encounter Details Date Type Department Care Team (Late st Contact Info) Description 11/29/2015 Historical Ophthalmology [facility] Sha Isaacs Jr., M.D. [address] [place] [phone] Social History Tobacco Use Types Packs/Day Years Used Date Smoking Tobacco: Never Assessed Comments Unknown Sex and Gender Information Value Date Recorded Sex Assigned at Female 12/14/2018 11:12 AM CDT Legal Sex Female 10:46 PM LANDSCAPE MANAGEMENT TECHNICIAN Gender Identity Female 12/14/2018 11:12 AM CDT Sexual Orientation Straight 12/14/2018 11 :12 AM CDT documented as of this encounter Progress Notes * Sha Isaacs M.D. - 11/29/2015 1:24 PM CDT Eye General CHIEF COMPLAINT 4 Month IOP check HISTORY OF PRESENT ILLNESS Pt states she has only been using the Pred Forte inthe right eye. No concerns noted. IMPRESSION / REPORT / PLAN #1 s/p DSEK ou, doing well #2 Pseudophakia RTO 6 months, no changes in meds DIAGNOSIS #1 s/p DSEK ou, doing well #2 Pseudophakia CDM Reports - EYEGEN Id: [id number] Status: Fnl documented in this encounter Plan [...] documented as of this encounter Care Teams Fur Floor Worker Relationship Specialty Start Date End Date Elsewhere, Pcp PCP - General Internal Medicine 07/07/24 documented as of this encounter
--- OUTSIDE RECORDS SUMMARY | 2025-01-08 14:48 | XMS_ITS | Encounter Summary ---
Author Organization [facility] Address [address] [place] [address] Care Team Providers Care Commercial Credit Portfolio Manager Name Role Phone Elsewhere, Pcp Primary Care Provider Unavailabl e Encounter Details Date Type Department Care Team (Late st Contact Info) Description 02/09/2015 Historical Ophthalmology [facility] OPH Magnus Fontana M.D. [address] [place] [address] Social History Tobacco Use Types Packs/Day Years Used Date Smoking Tobacco: Never Assessed Comments Unknown Sex and Gender Information Value Date Recorded Sex Assigned at Female 12/14/2018 11:12 AM CDT Legal Sex Female 10:46 PM LAMINATION OPERATOR Gender Identity Female 12/14/2018 11:12 AM CDT Sexual Orientation Straight 12/14/2018 11 :12 AM CDT documented as of this encounter Progress Notes * Magnus Fontana M.D. - 02/09/2015 8:13 AM CDT Eye General CHIEF COMPLAINT s/p DSEK left eye HISTORY OF PRESENT ILLNESS Was seen in the ER early this morning for pain; corneal abrasion diagnosed. EES ointment applied with a patch. Removed metal patch this morning as was bothering her. Pain; left eye; x 1 day; constantly; symptoms reported at level of 7/10. Tramadol seems to help some. Tearing as well. IMPRESSION / REPORT / PLAN Consult requested by: Sha Isaacs MD #1 s/p Descemet stripping endothelial keratoplasty, left eye. Doing well. Moxifloxacin 0.5%, 1 drop 4x/day for 1 week into operative eye. Prednisolone acetate 1%, 1 drop 4x/day into operative eye. Wear shield at night and glasses during the day. , Call if decreased vision, increased photophobia,pain, discharge or increased redness occurs., Instruction pamphlet given, Care following corneal transplant ( [id number]). Follow-up in 1 week. 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 #3 Pseudophakia, both eyes Stable in bag. #4 Glaucoma suspect, right>left eye Based on cupping. KIMBERLEY visual field normal OS, early arcuate changes OD. DIAGNOSIS #1 s/p Descemet stripping endothelial keratoplasty, left eye. #2 Fuchs endothelial dystrophy #3 Pseudophakia, both eyes #4 Glaucoma suspect, right>left eye CDM Reports - EYEGEN Id: [id number] Status: Fnl documented in this encounter Plan [...] documented as of this encounter Care Teams Commercial Credit Portfolio Manager Relationship Specialty Start Date End Date Elsewhere, Pcp PCP - General Internal Medicine 07/07/24 documented as of this encounter
--- OUTSIDE RECORDS SUMMARY | 2025-01-08 14:48 | XMS_ITS | Encounter Summary ---
Author Organization [facility] Address [address] [place] [address] Care Team Providers Care Squadron Worker Name Role Phone Elsewhere, Pcp Primary Care Provider Unavailabl e Encounter Details Date Type Department Care Team (Late st Contact Info) Description 12/19/2014 Historical Ophthalmology [facility]ST OPH Sharda Butler [address] [place] [address] Social History Tobacco Use Types Packs/Day Years Used Date Smoking Tobacco: Never Assessed Comments Unknown Sex and Gender Information Value Date Recorded Sex Assigned at Female 12/14/2018 11:12 AM CDT Legal Sex Female 10:46 PM RADIO TIME BUYER Gender Identity Female 12/14/2018 11:12 AM CDT Sexual Orientation Straight 12/14/2018 11 :12 AM CDT documented as of this encounter Progress Notes * Sharda Butler - 12/19/2014 10:38 AM CDT Eye Subsequent Visit HISTORY OF PRESENT ILLNESS Listing for DSEK, left eye 02/08/2015 Gonda 7E TRAVEL SERVICE CONSULTANT CDM Reports - EYESV Id: [id number] Status: Fnl documented in this encounter Plan [...] documented as of this encounter Care Teams Squadron Worker Relationship Specialty Start Date End Date Elsewhere, Pcp PCP - General Internal Medicine 07/07/24 documented as of this encounter
--- OUTSIDE RECORDS SUMMARY | 2025-01-08 14:48 | XMS_ITS | Clinical Summary ---
Author Organization [facility] Address [address] [place] [id number] Care Team Providers Care Learning Program Manager Name Role Phone Dannie Porter MD Primary Care Provider + Allergies Active Allergy Reactions Criticality Noted Date Comments Amlodipine Itching,Nausea Only,Headache Low 04/02/2012 Codeine Nausea And Vomiting 11/19/2007 Propoxyphene-Acetaminophen Nausea And Vomiting Low 04/02/2012 Doxazosin Other - Describe In Comment Field 04/02/2012 Causing pursing in the ear, forgetfulness, head being squeezed Hydrochlorothiazide Rash,Itching Low 04/02/2012 Lisinopril Cough Low 04/02/2012 Losartan Rash Low 04/02/2012 Paroxetine Dizziness Low 04/02/2012 Topiramate Nausea Only,Dizziness Low 04/02/2012 Zinc Other - Describe In Comment Field Low 04/02/2012 Sickness and diarrhea Medications timoloL maleate (TIMOPTIC) 0.5 % ophthalmic solution Place 1 Drop into right eye 2 times daily. 2 Active aspirin (ECOTRIN) 81 mg enteric coated tablet Take 81 mg by mouth once daily with a meal. Active acetaminophen-c affeine-butalbi devon (Fioricet) 300-40-50 mg Take 1 Capsule by mouth 3 times daily if needed for Migraine. Active clobetasol (TEMOVATE) 0.05 % ointment Apply topically to affected area(s) once daily if needed. Active latanoprost (XALATAN) 0.005 % ophthalmic solution Place 1 Drop into right eye at bedtime. Active nystatin 100,000 unit/gram cream Apply topically to affected area(s) once daily if needed. Active apixaban (Eliquis) 5 mg tabletIndicatio ns:deep venous thrombosis Take 1 Tablet (5 mg) by mouth two times daily. For 3 months (reassess need around 09/28/24) 4 Active Qvar RediHaler 80 mcg/actuation HFAb HFA inhaler Inhale 1 Puff by mouth two times daily. 5 Active furosemide (LASIX) 20 mg tablet Take 20 mg by mouth once daily in the morning. 5 Active Synthroid 50 mcg tablet Take 100 mcg by mouth before breakfast. Active metoprolol tartrate (LOPRESSOR) 50 mg tablet Take 50 mg by mouth two times daily. 5 Active valsartan (DIOVAN) 160 mg tablet Take 1 Tablet by mouth once daily. 5 Active prednisoLONE acetate 1% ophthalmic (ECONOPRED PLUS, PRED FORTE, OMNIPRED) suspension Place 1 Drop into right eye two times daily. Active NIFEdipine ER (ADALAT CC) 30 mg extended-Releas e tabletIndicatio ns:Hypertensive emergency Take 1 Tablet (30 mg) by mouth once daily before a meal. 30 Tablet 5 Active Active Problems Problem Noted Date Diagnosed Date Hypertensive emergency 10/10/2024 Intractable migraine without status migrainosus 10/09/2024 Generalized weakness 10/09/2024 Hypertensive urgency 06/22/2024 Acute encephalopathy 06/22/2024 Hypertensive emergency 12/25/2021 YANG (obstructive sleep apnea) 12/25/2021 Polyneuropathy 12/25/2021 Abdominal pain, generalized 08/16/2018 Hyperlipidemia 10/13/2015 Hypothyroidism 10/13/2015 Primary hypertension 10/13/2015 Overview (06/22/2024): Hypertension (HTN) Chronic Gastroesophageal reflux disease 06/03/2008 Migraine, unspecified, witho ut mention of intractable migraine without mention of status migrainosus Encounters Date Type Department Care Team Description 10/09/2024 6:36 PM LAPPING MACHINE SET UP OPERATOR - 10/12/2024 1:15 PM CDT Hospital Encounter [facility] [address] [place] [address] Radha Brennan PA Hospitalist, [facility] Hoyos, Ephraim Pablo, MD Gutiérrez, Justin Rader, DO Abbott, Diaz Kerr, MD Grider, Terese Taylor, GENERATOR MECHANIC Kyrie, JOSE L Stanley Other migraine without status migrainosus, intractable (Primary Dx); Weakness; Hypertensive emergency Discharge Disposition: Home Self Care 10/09/2024 Travel from Last 3 Months Immunizations Immunization Administration Dates Next Due COVID-19 vaccine (Animated Speech 30mcg/0.3mL) P F, MDV 10/19/2020 Pneumococcal Poly,23-Valent (Pneumovax) 05/30/20 03 Td (Age >=7 Years) 10/01/2007 Zoster (Zostavax-ZVL, live) 03/01/2010 Social History Tobacco Use Types Packs/Day Years Used Date Smoking Tobacco: Never Smokeless Tobacco: Never Tobacco Cessation:Counseling Given: No Alcohol Use Standard Drinks/Week Comments Yes 1 (1 standard drink = 0.6 oz pur e alcohol) glass of wine once in a while Social Connections Answer Date Recorded Do you often feel lonely or isolated from those around you? 0 10/10/2024 Financial Resource Strain Answer Date R ecorded Difficulty of Paying Living Expenses 3 06/22/2024 Difficulty of Paying Living Expenses Not on file 06/22/2024 Food Insecurity Answer Date Recorded Do you worry your food will run out before you are able to buy more? 1 10/10/2024 Transportation Needs Answer Date Record ed Does lack of transportation keep you from medica l appointments? 1 10/10/2024 Does lack of transportation keep you from work, meetings or getting things that you need? 1 10/10/2024 Housing Stability Answer Date Recorded What is your housing situation today? 1 10/10/2024 Interpersonal Safety Answer Date Record ed Are you being hit, kicked, p ushed or yelled at (see row info)? No 10/09/2024 Interpersonal Safety Abuse 12 - 18 Not on file 10/09/2024 Interpersonal Safety Ambulatory Vulnerability No t on file 10/09/2024 Utilities Answer Date Recorded Do you have trouble paying f or utilities (for example, heat, electricity, water, phone)? 1 10/10/2024 Comments No Sex and Gender Information Value Date Recorded Sex Assigned at Female 10/09/2024 6:52 PM LAPPING MACHINE SET UP OPERATOR Legal Sex Female 5:23 AM LAPPING MACHINE SET UP OPERATOR Gender Identity Female 10/28/2022 9:42 AM CDT Sexual Orientation Straight 10/09/2024 6: 52 PM LAPPING MACHINE SET UP OPERATOR Obstetrics History Last Filed Vital Signs Vital Sign Reading Time Taken Comments Blood Pressure 125/69 10/12/2024 12:08 PM CDT Pulse 67 10/12/2024 12:08 PM CDT Temperature 36.1 C (97 F) 10/12/2024 8:01 AM CDT Respiratory Rate 18 10/12/2024 8:01 AM CDT Oxygen Saturation 95% 10/12/2024 8:01 AM CDT Inhaled Oxygen Concentration - - Weight 72.8 kg (160 lb 6.4 oz) 10/10/2024 4:00 P M CDT Height 157.5 cm (5' 2) 10/09/2024 6:44 PM LAPPING MACHINE SET UP OPERATOR Body Mass Index 29.34 10/09/2024 6:44 PM LAPPING MACHINE SET UP OPERATOR Plan of Treatment Health Maintenance Due Date Last Done Comments Tdap 1946 Depression screening for age 12+ 1949 DEXA/DXA scan for age 65+ 2002 Medicare Wellness for age 65+ 2002 Pneumococcal series for age 50+ (2 of 2 - PCV) 05/30/2004 05/30/2003 Zoster (shingles) series for age 50+ (2 of 3) 04/26/2010 03/01/2010 RSV vaccine for adults or (1 - 1-dose 75+ series) 2012 BMI (ht and wt on same day) for age 18+ 09/04/2016 09/04/2015 Tetanus booster 10/01/2017 10/01/2007 COVID-19 vaccine series ( season) 2024 05/11/2021, 10/19/2020 Influenza Vaccine (Season Ended) 2025 Hepatitis B series for 19+ Aged Out N o longer eligible based on patient's age to complete this topic Procedures Procedure Name Priority Date/Time Associated Diagnosis Comments RED CELL MORPHOLOGY Timed 10/12/2024 5 :42 AM CDT PLATELET ESTIMATE Timed 10/12/2024 5:4 2 AM CDT SODIUM Early AM 10/12/2024 5:42 AM CDT WHITE BLOOD COUNT Early AM 10/12/2024 5:4 2 AM CDT CREATININE Early AM 10/12/2024 5:42 AM CDT HEMOGLOBIN Early AM 10/12/2024 5:42 AM CDT POTASSIUM Early AM 10/12/2024 5:42 AM CDT MAGNESIUM Early AM 10/12/2024 5:42 AM CDT MR HEAD BRAIN WO STAT 10/11/2024 11:5 5 AM CDT PLATELET ESTIMATE Timed 10/11/2024 5:4 2 AM CDT RED CELL MORPHOLOGY Timed 10/11/2024 5 :42 AM CDT BASIC METABOLIC PANEL Early AM 10/11/2024 5:42 AM CDT CBC W PLT NO DIFF Early AM 10/11/2024 5:4 2 AM CDT MAGNESIUM Early AM 10/11/2024 5:42 AM CDT CREATININE STAT 10/10/2024 4:18 PM CDT POTASSIUM STAT 10/10/2024 4:18 PM CDT MAGNESIUM STAT 10/10/2024 4:18 PM CDT EKG 12 LEAD GAVINO 10/10/2024 2:[address] HEAD BRAIN WO STAT 10/09/2024 7:11 PM LAPPING MACHINE SET UP OPERATOR CBC WITH AUTO DIFFERENTIAL STAT 10/09/2024 7:02 PM LAPPING MACHINE SET UP OPERATOR TROPONIN T (HS) ACUTE W/2HR REFLEX STAT 10/09/2024 7:02 PM LAPPING MACHINE SET UP OPERATOR C-REACTIVE PROTEIN STAT 10/09/2024 7: 02 PM LAPPING MACHINE SET UP OPERATOR SEDIMENTATION RATE STAT 10/09/2024 7: 02 PM LAPPING MACHINE SET UP OPERATOR PROTIME-INR STAT 10/09/2024 7:02 PM LAPPING MACHINE SET UP OPERATOR BASIC METABOLIC PANEL STAT 10/09/2024 7:02 PM LAPPING MACHINE SET UP OPERATOR CBC WITH AUTO DIFFERENTIAL STAT 10/09/2024 7:02 PM LAPPING MACHINE SET UP OPERATOR from Last 3 Months Results * RED CELL MORPHOLOGY (10/12/2024 5:42 AM CDT) Only the most recent of2 resultswithin the time period is included. RBC COMMENT RBC morphology appears normal RBC morphology appears normal, RBC morphology within normal limits for newborns. 10/12/2024 7:17 AM CDT [facility] LARGE PLATELETS Present 10/12/2024 7:17 AM CDT [facility] Blood BLOOD SPECIMEN / Unknown Venipuncture / Unknown 10/12/2024 5:42 AM CDT 10/12/2024 6:29 AM CDT us Terese Grider NP HEMATOLOGY Fin al Result [facility] [address] [place] [address] * PLATELET ESTIMATE (10/12/2024 5:42 AM CDT) Only the most recent of2 resultswithin the time period is included. PLATELET ESTIMATE Adequate Adequate, No estimate 10/12/2024 7:17 AM CDT [facility] Blood BLOOD SPECIMEN / Unknown Venipuncture / Unknown 10/12/2024 5:42 AM CDT 10/12/2024 6:29 AM CDT Terese Grider NP HEMATOLOGY Fin al Result Performing Organization Address City/[facility]/ZIP Co de Phone Number [facility] [address] [place] [address] * WHITE BLOOD COUNT (10/12/2024 5:42 AM CDT) WHITE BLOOD COUNT 8.7 4.5 - 11.0 thou/cu mm 10/12/2024 7:16 AM CDT [facility] Blood BLOOD SPECIMEN / Unknown Venipuncture / Unknown 10/12/2024 5:42 AM CDT 10/12/2024 6:29 AM CDT Terese Grider NP HEMATOLOGY Fin al Result Performing Organization Address [facility]/ZIP Co de Phone Number [facility] [address] [place] [address] * HEMOGLOBIN (10/12/2024 5:42 AM CDT) [facility] HEMOGLOBIN 12.7 12.0 - 16.0 g/dL 10/12/2024 7:16 AM CDT [facility] MCV 96 80 - 100 fL 10/12/2024 7:16 AM CDT [facility] Blood BLOOD SPECIMEN / Unknown Venipuncture / Unknown 10/12/2024 5:42 AM CDT 10/12/2024 6:29 AM CDT Terese Grider NP HEMATOLOGY Fin al Result [facility] [address] [place] [address] * SODIUM (10/12/2024 5:42 AM CDT) Pathologist [facility] SODIUM 142 136 - 145 mmol/L 10/12/2024 6:56 AM CDT [facility] Blood BLOOD SPECIMEN / Unknown Venipuncture / Unknown 10/12/2024 5:42 AM CDT 10/12/2024 6:27 AM CDT Terese Grider GENERATOR MECHANIC CHEMISTRY Fin al Result Performing Organization Address City/[facility]/ZIP Co de Phone Number [facility] [address] [place] [address] * POTASSIUM (10/12/2024 5:42 AM CDT) Only the most recent of2 resultswithin the time period is included. Pathologist [facility] POTASSIUM 4.0 3.5 - 5.1 mmol/L 10/12/2024 6:56 AM CDT [facility] Blood BLOOD SPECIMEN / Unknown Venipuncture / Unknown 10/12/2024 5:42 AM CDT 10/12/2024 6:27 AM CDT Jessie Rodriguez RN CHEMISTRY Final Re sult Performing Organization Address [facility] Co de Phone Number [facility] [address] [place] [phone] * (ABNORMAL) CREATININE (10/12/2024 5:42 AM CDT) Only the most recent of2 resultswithin the time period is included. Pathologist [facility] eGFR 74(L) >90 mL/min/1.7 3m2 10/12/2024 6:56 AM CDT [facility] Comment:As of 2021, eG FR is calculated by the CKD-EPI creatinine equation without race adjustment. eGFR can be influenced by muscle mass, exercise, and diet. The reported eGFR is an estimation only and is only applicable if the renal function is stable. CREATININE 0.78 0.50 - 0.90 mg/dL 10/12/2024 6:56 AM CDT [facility] Blood BLOOD SPECIMEN / Unknown Venipuncture / Unknown 10/12/2024 5:42 AM CDT 10/12/2024 6:27 AM CDT us Terese Grider GENERATOR MECHANIC CHEMISTRY Fin al Result Performing Organization Address [facility]/ZIP Co de Phone Number [facility] [address] [place] [address] * (ABNORMAL) MAGNESIUM (10/12/2024 5:42 AM CDT) Only the most recent of3 resultswithin the time period is included. MAGNESIUM 2.5(H) 1.6 - 2.4 mg/dL 10/12/2024 6:56 AM CDT [facility] Blood BLOOD SPECIMEN / Unknown Venipuncture / Unknown 10/12/2024 5:42 AM CDT 10/12/2024 6:27 AM CDT us Jessie Rodriguez RN CHEMISTRY Final Re sult Performing Organization Address [facility] Co de Phone Number [facility] [address] [place] [address] * MR HEAD BRAIN WO (10/11/2024 11:55 AM CDT) Anatomical Region Laterality Modality BRAIN, HEAD Magnetic Resonan ce 10/11/2024 12:0 3 PM CDT Impressions 10/11/2024 12:03 PM CDT 1. No acute intracranial abnormality. Specifically, no evidence of acute ischemia. 2. Moderate diffuse parenchymal volume loss and chronic small vessel ischemic changes. 3. Punctate focus of susceptibility artifact in the left frontal white matter consistent with sequela of remote microhemorrhage. Dictated by Martín Acosta MD @ 10/11/2024 12:03:12 PM (Electronically Signed) Narrative 10/11/2024 12:03 PM CDT For Patients: As a result of the Century Cures Act, medical imaging exams and procedure reports are released immediately into your electronic medical record. You may view this report before your referring provider. If you have questions, please contact your health care provider. INDICATION: Headache, speech changes, word-finding difficulty. TECHNIQUE: Multisequence multiplanar MRI of the brain without the use of intravenous contrast. COMPARISON: MRI brain dated 10/28/2022. FINDINGS: No evidence of acute ischemia. Similar scattered as well as confluent T2 prolongation within the white matter of both cerebral hemispheres. Punctate focus of susceptibility artifact within the left frontal white matter. Similar moderate diffuse parenchymal volume loss. Flow voids of the larger intracranial arteries are preserved. Normal calvarial bone marrow signal intensity. Bilateral pseudophakia. Mild scattered paranasal sinus mucosal thickening. Procedure Note Dante Acosta MD - 10/11/2024 For Patients: As a result of the Cures Act, medical imagingexams and procedure reports are released immediately into your electronicmedical record. You may view this report before your referring provider.If you have questions, please contact your health care provider. INDICATION: Headache, speech changes, word-finding difficulty. TECHNIQUE: Multisequence multiplanar MRI of the brain without the use of intravenouscontrast. COMPARISON: MRI brain dated 10/28/2022. FINDINGS: No evidence of acute ischemia. Similar scattered as well as confluent [id number] within the white matter of both cerebral hemispheres.Punctate focus of susceptibility artifact within the left frontal whitematter. Similar moderate diffuse parenchymal volume loss. Flow voids of the largerintracranial arteries are preserved. Normal calvarial bone marrow signal intensity. Bilateral pseudophakia.Mild scattered paranasal sinus mucosal thickening. IMPRESSION: 1. No acute intracranial abnormality. Specifically, no evidence of acuteischemia. 2. Moderate diffuse parenchymal volume loss and chronic small vesselischemic changes. 3. Punctate focus of susceptibility artifact in the left frontal whitematter consistent with sequela of remote microhemorrhage. Dictated by Martín Acosta MD @ 10/11/2024 12:03:12 PM (Electronically Signed) Justin Rader Brock DO MR Janet palacios Result * (ABNORMAL) CBC W PLT NO DIFF (10/11/2024 5:42 AM CDT) WHITE BLOOD COUNT 9.6 4.5 - 11.0 thou/cu mm 10/11/2024 7:03 AM [facility] RED BLOOD COUNT 3.98(L) 4.00 - 5.20 mil/cu mm 10/11/2024 7:03 AM [facility] HEMOGLOBIN 12.0 12.0 - 16.0 g/dL 10/11/2024 7:03 AM [facility] HEMATOCRIT 38.9 33.0 - 51.0 % 10/11/2024 7:03 AM [facility] MCV 98 80 - 100 fL 10/11/2024 7:03 AM [facility] MCH 30.2 26.0 - 34.0 pg 10/11/2024 7:03 AM [facility] MCHC 30.8(L) 32.0 - 36.0 g/dL 10/11/2024 7:03 AM [facility] RDW 15.3 11.5 - 15.5 % 10/11/2024 7:03 AM [facility] PLATELET COUNT 282 140 - 440 thou/cu mm 10/11/2024 7:03 AM [facility] MPV 11.8(H) 6.5 - 11.0 fL 10/11/2024 7:03 AM [facility] Blood BLOOD SPECIMEN / Unknown Venipuncture / Unknown 10/11/2024 5:42 AM CDT 10/11/2024 6:21 AM CDT us Ephraim Hoyos MD HEMATOLOGY Final Result [facility] [address] [place] [address] * (ABNORMAL) BASIC METABOLIC PANEL (10/11/2024 5:42 AM CDT) Only the most recent of2 resultswithin the time period is included. SODIUM 143 136 - 145 mmol/L 10/11/2024 6:43 AM [facility] POTASSIUM 4.1 3.5 - 5.1 mmol/L 10/11/2024 6:43 AM [facility] CHLORIDE 107 98 - 107 mmol/L 10/11/2024 6:43 AM [facility] CO2,TOTAL 28 22 - 29 mmol/L 10/11/2024 6:43 AM [facility] ANION GAP 8 5 - 18 10/11/2024 6:43 AM [facility] GLUCOSE 93 70 - 99 mg/dL 10/11/2024 6:43 AM [facility] CALCIUM 9.0 8.8 - 10.4 mg/dL 10/11/2024 6:43 AM [facility] Comment: Reference ranges for this test were updated on 06/08/2024 to reflect our healthy population more accurately. Reference range changes are not retroactively applied to results, but previous results using the same methodology can be interpreted in the context of the new reference range. BUN 17 8 - 23 mg/dL 10/11/2024 6:43 AM [facility] CREATININE 0.77 0.50 - 0.90 mg/dL 10/11/2024 6:43 AM [facility] BUN/CREAT RATIO 22(H) 10 - 20 6:43 AM [facility] eGFR 75(L) >90 mL/min/1.7 3m2 10/11/2024 6:43 AM [facility] Comment:As of 2021, eG FR is calculated by the CKD-EPI creatinine equation without race adjustment. eGFR can be influenced by muscle mass, exercise, and diet. The reported eGFR is an estimation only and is only applicable if the renal function is stable. Blood BLOOD SPECIMEN / Unknown Venipuncture / Unknown 10/11/2024 5:42 AM CDT 10/11/2024 6:20 AM CDT us Ephraim Hoyos MD CHEMISTRY Final Result [facility] [address] [place] [address] * EKG 12 LEAD (10/10/2024 2:25 PM CDT) Interpretation Normal sinus rhythm Left axis deviation Minimal voltage criteria for LVH, may be normal variant Abnormal ECG When compared with ECG of 23-Jun-2024 11:39, No significant change was found BEYOND NOW Ventricular Rate 76 BPM BEYOND NOW Atrial Rate 76 BPM BEYOND NOW P-R Interval 180 ms BEYOND NOW QRS Duration 82 ms BEYOND NOW QT 384 ms BEYOND NOW QTc 432 ms BEYOND NOW P [place] 61 degrees BEYOND NOW R [place] -31 degrees BEYOND NOW T [place] 44 degrees BEYOND NOW 10/10/2024 2:25 PM CDT 10/11/2024 11:19 AM CDT Justin Gutiérrez DO EKG ORD Janet l Result BEYOND NOW [place], [place] * CT HEAD BRAIN WO (10/09/2024 7:11 PM LAPPING MACHINE SET UP OPERATOR) Anatomical Region Laterality Modality HEAD, BRAIN Computed Tomogra phy 10/09/2024 7:29 PM LAPPING MACHINE SET UP OPERATOR Narrative 10/09/2024 7:29 PM LAPPING MACHINE SET UP OPERATOR For Patients: As a result of the Century Cures Act, medical imaging exams and procedure reports are released immediately into your electronic medical record. You may view this report before your referring provider. If you have questions, please contact your health care provider. Indication : Headache. Technique : CT of the brain without intravenous contrast. Comparison: CT head 06/22/2024. Findings: No acute blurring of the elizondo-white differentiation. There is no intracranial hemorrhage. The ventricles are proportionate to the cerebral sulci. The 4th ventricle is midline. Basal cisterns appear patent. No abnormal extra-axial fluid collection identified. Moderate parenchymal volume loss. There is moderate patchy periventricular hypodensity, favored to represent chronic ischemic microvascular disease. There is no intracranial mass, mass effect or midline shift identified. No depressed calvarial fracture. Impression: 1. No acute intracranial process. 2. Moderate chronic ischemic microvascular disease. Please note that all CT scans at this facility use dose modulation, iterative reconstruction, and/or weight-based dosing when appropriate to reduce radiation dose to as low as reasonably achievable. Dictated by Pedro Kennedy MD @ 10/09/2024 7:29:25 PM (Electronically Signed) Procedure Note Pedro Kennedy, DO - 10/09/2024 For Patients: As a result of the Cures Act, medical imagingexams and procedure reports are released immediately into your electronicmedical record. You may view this report before your referring provider.If you have questions, please contact your health care provider. Indication : Headache. Technique : CT of the brain without intravenous contrast. Comparison: CT head 06/22/2024. Findings: No acute blurring of the elizondo-white differentiation. There is nointracranial hemorrhage. The ventricles are proportionate to the cerebral sulci. The 4th ventricleis midline. Basal cisterns appear patent. No abnormal extra-axial fluidcollection identified. Moderate parenchymal volume loss. There is moderate patchy periventricularhypodensity, favored to represent chronic ischemic microvascular disease. There is no intracranial mass, mass effect or midline shift identified. No depressed calvarial fracture. Impression: 1. No acute intracranial process. 2. Moderate chronic ischemic microvascular disease. Please note that all CT scans at this facility use dose modulation,iterative reconstruction, and/or weight-based dosing when appropriate toreduce radiation dose to as low as reasonably achievable. Dictated by Pedro Kennedy MD @ 10/09/2024 7:29:25 PM (Electronically Signed) Radha LEIGH CT Fin al Result * TROPONIN T (HS) ACUTE W/2HR REFLEX (10/09/2024 7:02 PM LAPPING MACHINE SET UP OPERATOR) TROPONIN T HS <6 6-10 ng/L ng/L 10/09/2024 7:27 PM [facility] Blood BLOOD SPECIMEN / Unknown Venipuncture / Unknown 10/09/2024 7:02 PM LAPPING MACHINE SET UP OPERATOR 10/09/2024 7:06 PM LAPPING MACHINE SET UP OPERATOR Narrative [facility] - 10/09/2024 7:27 PM LAPPING MACHINE SET UP OPERATOR hs-cTnT (Elecsys Troponin T Gen 5) concentration (s) above the sex-specific 99th percentile (16 ng/L or greater for males or 11 ng/L or greater for females) are indicative of myocardial injury. If initial hs-cTnT <=100 ng/L at presentation, a 0h/2h ABSOLUTE (ng/L) delta change (rising or falling) of >=10 ng/L suggests a significant change, whereas a 0h/2h delta change <=3 ng/L suggests no significant change. If initial hs-cTnT >100 ng/L at presentation, a 0h/2h/ RELATIVE (percent, %) delta change of 20% is suggested to distinguish patients with acute vs. chronic myocardial injury. There are multiple etiologies that can cause hs-cTnT increases above the 99th percentile (myocardial injury) other than acute myocardial infarction. Clinical context and careful clinical evaluation are critical for diagnosis and risk-stratification. The diagnosis of acute myocardial infarction requires a rising and/or falling pattern in hs-cTnT concentrations with at least one value above the sex-specific 99th percentile PLUS at least one of the following clinical criteria: ischemic symptoms, new or presumed new significant ST-T wave changes or new LBBB, development of pathological Q waves, imaging evidence of new loss of viable myocardium or new regional wall motion abnormality, or identification of intracoronary atherothrombosis or an acute angiographic culprit on coronary angiography. In appropriate low-risk patients with a non-ischemic electrocardiogram without active chest pain with a symptom onset >3-hours without recurrence, a single initial hs-cTnT<6 ng/L identifies patient with a very low risk in emergency department patient population. Radha LEIGH CHEMISTRY Fin al Result Performing Organization Address City/[facility]/ZIP Co de Phone Number [facility] [address] [place] [address] * SEDIMENTATION RATE (10/09/2024 7:02 PM LAPPING MACHINE SET UP OPERATOR) [facility] SEDIMENTATION RATE 18 <30 mm/hr 2024 7:40 PM LAPPING MACHINE SET UP OPERATOR [facility] Blood BLOOD SPECIMEN / Unknown Venipuncture / Unknown 10/09/2024 7:02 PM LAPPING MACHINE SET UP OPERATOR 10/09/2024 7:06 PM LAPPING MACHINE SET UP OPERATOR Radha LEIGH HEMATOLOGY Fin al Result [facility] [address] [place] [address] * (ABNORMAL) CBC WITH AUTO DIFFERENTIAL (10/09/2024 7:02 PM [facility]) WHITE BLOOD COUNT 9.5 4.5 - 11.0 thou/cu mm 10/09/2024 7:09 PM [facility] RED BLOOD COUNT 4.56 4.00 - 5.20 mil/cu mm 10/09/2024 7:09 PM [facility] HEMOGLOBIN 13.9 12.0 - 16.0 g/dL 10/09/2024 7:09 PM [facility] HEMATOCRIT 44.2 33.0 - 51.0 % 10/09/2024 7:09 PM [facility] MCV 97 80 - 100 fL 10/09/2024 7:09 PM [facility] MCH 30.5 26.0 - 34.0 pg 10/09/2024 7:09 PM [facility] MCHC 31.4(L) 32.0 - 36.0 g/dL 10/09/2024 7:09 PM [facility] RDW 14.8 11.5 - 15.5 % 10/09/2024 7:09 PM [facility] PLATELET COUNT 306 140 - 440 thou/cu mm 10/09/2024 7:09 PM [facility] MPV 10.9 6.5 - 11.0 fL 10/09/2024 7:09 PM [facility] % NEUT 63.7 % 10/09/2024 7:09 PM [facility] % LYMPH 19.6 % 10/09/2024 7:09 PM [facility] % MONO 12.0 % 10/09/2024 7:09 PM [facility] % EOS 4.5 % 10/09/2024 7:09 PM [facility] % BASO 0.2 % 10/09/2024 7:09 PM [facility] ABSOLUTE NEUTROPHILS 6.1 1.7 - 7.0 thou/cu mm 10/09/2024 7:09 PM [facility] ABSOLUTE LYMPHOCYTES 1.9 0.9 - 2.9 thou/cu mm 10/09/2024 7:09 PM [facility] ABSOLUTE MONOCYTES 1.1(H) <0.9 thou/cu mm 10/09/2024 7:09 PM [facility] ABSOLUTE EOSINOPHILS 0.4 <0.5 thou/cu mm 10/09/2024 7:09 PM [facility] ABSOLUTE BASOPHILS 0.0 <0.3 thou/cu mm 10/09/2024 7:09 PM [facility] Blood BLOOD SPECIMEN / Unknown Venipuncture / Unknown 10/09/2024 7:02 PM LAPPING MACHINE SET UP OPERATOR 10/09/2024 7:06 PM LAPPING MACHINE SET UP OPERATOR Radha LEIGH HEMATOLOGY Fin al Result Performing Organization Address [facility]/ZIP Co de Phone Number [facility] [address] [place] [address] * C-REACTIVE PROTEIN (10/09/2024 7:02 PM LAPPING MACHINE SET UP OPERATOR) C-REACTIVE PROTEIN <0.3 <0.5 mg/dL 10/09/2024 7:34 PM [facility] Blood BLOOD SPECIMEN / Unknown Venipuncture / Unknown 10/09/2024 7:02 PM LAPPING MACHINE SET UP OPERATOR 10/09/2024 7:06 PM LAPPING MACHINE SET UP OPERATOR Radha LEIGH CHEMISTRY Fin al Result [facility] [address] [place] [address] * PROTIME-INR (10/09/2024 7:02 PM LAPPING MACHINE SET UP OPERATOR) INR 1.0 <1.3 10/09/2024 7:37 PM [facility] PROTIME 11.8 10.6 - 12.4 sec 10/09/2024 7:37 PM [facility] Blood BLOOD SPECIMEN / Unknown Venipuncture / Unknown 10/09/2024 7:02 PM LAPPING MACHINE SET UP OPERATOR 10/09/2024 7:06 PM LAPPING MACHINE SET UP OPERATOR Narrative [facility] - 10/09/2024 7:37 PM LAPPING MACHINE SET UP OPERATOR Therapeutic Range 2.0-3.0 for most anticoagulated patients 2.5-3.5 or 4.0 for high risk patients The INR is only used for patients on stable oral anticoagulant therapy. It makes no significant contribution to the diagnosis or treatment of patients whose Protime is prolonged for other reasons. INR results are increased when heparin levels exceed 1.0 U/mL, which corresponds to an aPTT >125 seconds if the patient is on UFH. Radha LEIGH HEMATOLOGY Fin al Result [facility] [address] [place], [place] [id number] from Last 3 Months Insurance MEDICARE PART B HB ONLY MEDICARE PART A HB ONLY [employer] [place] BLUE HB ONLY [employer] [place] BLUE MR PB ONLY MEDICARE PART B HB ONLY MR BC [place] Advance Directives Documents on File Type Date Recorded Patient Slide Developer Expl anation Power of Animal Physiology Teacher 09/28/2024 12:00 AM SHOR T FORM - SIGNED 09/10/2024 * Full Code (Latest Code Status on File) Date Activated Date Inactivated Comments 10/10/2024 3:57 PM 10/12/2024 3:21 PM Question Answer Comments Code Status Discussion: Reviewed Preferences * Full Code Date Activated Date Inactivated Comments 06/22/2024 4:24 AM 06/29/2024 12:38 PM Question Answer Comments Code Status Discussion: Unable to Assess Preferences, Provider to review later * Full Code Date Activated Date Inactivated Comments 10/28/2022 12:44 PM 10/29/2022 4:10 PM Question Answer Comments Code Status Discussion: Reviewed Preferences * Full Code Date Activated Date Inactivated Comments 12/25/2021 4:14 PM 12/26/2021 3:55 PM Question Answer Comments Code Status Discussion: Reviewed Preferences * Full Code Date Activated Date Inactivated Comments 02/17/2019 12:37 PM 02/18/2019 1:57 PM Question Answer Comments Code Status Discussion: Discussed Care Teams Learning Program Manager Relationship Specialty Start Date End Date Dannie Porter MD [address] [place] [address] PCP - General Family Practice 02/03/24
--- OUTSIDE RECORDS SUMMARY | 2025-01-08 14:48 | XMS_ITS | Encounter Summary ---
Author Organization [facility] Address [address] [place] [address] Care Team Providers Care Adjunct Professor Name Role Phone Elsewhere, Pcp Primary Care Provider Unavailabl e Encounter Details Date Type Department Care Team (Late st Contact Info) Description 04/21/2014 Historical Ophthalmology [facility] Sha Isaacs Jr., M.D. 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 - 04/21/2014 11:03 AM CDT Eye General CHIEF COMPLAINT CE. HISTORY OF PRESENT ILLNESS STATES---DECREASED VISION AND USING A MAGNIFIER FOR SOME THINGS. LT EYE HAS BEEN HAVING DULL PAIN, DRY, IRRITATED X 1 YEAR. NOTES FROM [facility] INDICATED I HAVE GLAUCOMA LT EYE---IS THAT CORRECT? NO OTHER C/O. GOOD GEN HEALTH. HIGH BLD PRESSURE. ROS--WNL. IMPRESSION / REPORT / PLAN A) Fuchs, DSEK OD< pseudo IOL OU, C/D increased ou, but mild. IOP OK P) 3 month with glaucoma OCT, iop check CDM Reports - EYEGEN Id: [id number] Status: Fnl documented in this encounter Plan [...] documented as of this encounter Care Teams Adjunct Professor Relationship Specialty Start Date End Date Elsewhere, Pcp PCP - General Internal Medicine 07/07/24 documented as of this encounter
--- OUTSIDE RECORDS SUMMARY | 2025-01-08 14:48 | XMS_ITS | Encounter Summary ---
Author Organization [facility] Address [address] [place] [address] Care Team Providers Care Communications Writer Name Role Phone Elsewhere, Pcp Primary Care Provider Unavailabl e Encounter Details Date Type Department Care Team (Late st Contact Info) Description 10/14/2013 Historical Ophthalmology [facility] Jose Stacy M.D. 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 - 10/14/2013 9:24 AM CDT Eye Postoperative MULTI-VISIT DOCUMENT This document contains multiple patient visits and is available for review in Document Viewer. CDM Reports - EYEPO Id: [id number] Status: Fnl documented in this encounter Plan [...] documented as of this encounter Care Teams Communications Writer Relationship Specialty Start Date End Date Elsewhere, Pcp PCP - General Internal Medicine 07/07/24 documented as of this encounter
--- OUTSIDE RECORDS SUMMARY | 2025-01-08 14:48 | XMS_ITS | Encounter Summary ---
Author Organization [facility] Address [address] [place] [address] Care Team Providers Care Food Or Baggage Handling Rampman Name Role Phone Elsewhere, Pcp Primary Care Provider Unavailabl e Encounter Details Date Type Department Care Team (Late st Contact Info) Description 05/26/2015 Historical Ophthalmology [facility] Sha Isaacs Jr., M.D. 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 - 05/26/2015 4:02 PM CDT Eye General CHIEF COMPLAINT Recheck Corneal Transplants HISTORY OF PRESENT ILLNESS Pt states Prednisolone- the RE has been itching and irritated.( uses it 1xday in the RE) the LE hasbeen fine. vision seems pretty stable.- it is difficult for her to read. IMPRESSION / REPORT / PLAN #1 POAG, don't want the IOP's much charisse #2 S/P DSEK ou; though graft is inferotemporal OD, good visual result. OS healing well; sutures in place laterally Plan; Refract today. RTo 3 months. Probable sensitivity to preservative in FML; will go back to PF/daily ou, DIAGNOSIS #1 POAG, don't want the IOP's much charisse #2 S/P DSEK ou; though graft is inferotemporal OD, good visual result. OS healing well; sutures in place laterally CDM Reports - EYEGEN Id: [id number] Status: Fnl documented in this encounter Plan [...] documented as of this encounter Care Teams Food Or Baggage Handling [place]ampman Relationship Specialty Start Date End Date Elsewhere, Pcp PCP - General Internal Medicine 07/07/24 documented as of this encounter
[2025-01-08 14:49] VITALS: BP 136/92; PULSE 66; RESP 18; TEMP 37; O2SAT 94; BMI 29.3
--- NOTE | 2025-01-08 14:58 | ED.GENADULT ---
HPI - General Adult General Date Seen: 01/08/25 Chief complaint: Unspecified Complaint, Adult Stated complaint: Lump Behind Right Leg Time Seen by Provider: 01/08/25 14:58 History of Present Illness HPI narrative: 89 yo F with a past medical history including hypothyroidism, hypertension, hyperlipidemia, sleep apnea, open-angle glaucoma, migraine headaches, peripheral neuropathy, hearing loss, CHF, chronic low back pain, chronic neck pain, mild asthma. She also has a history of deep vein thromboses and is on Eliquis. Per patient she apparently developed leg swelling when she was a young woman after every single 1 of her deliveries and was treated temporarily with heparin for what they described at that time as, ?milk leg. ? She has had DVT since then including a DVT that occurred last May after she fell and injured her shoulder. She has been on Eliquis since then. She has been therapeutic and compliant with taking her anticoagulant and has not needed to take any doses. She is currently on Eliquis 5 mg b.i.d.. Beginning yesterday she started developing some pain and some swelling in the back of her right calf. She does not have any known injury. The pain radiates from there up the back of her leg at all the way up to her medial thigh. Not really any other swelling in her ankle. There is no redness. No fever or chills. She is not having any chest pain or shortness of breath. Knowing that if she has another DVT there is a risk it could embolize and become a PE, she came here to the ER to be checked. Related Data Home Medications ?Medication ?Instructions ?Recorded ?Confirmed aspirin 81 mg chewable tablet 81 mg PO QDAY 12/10/22 01/08/25 clobetasol 0.05 % topical ointment 1 applic topical PRN 06/13/23 12/10/24 nystatin-triamcinolone 100,000 1 applic topical BID PRN 04/08/24 01/08/25 unit/g-0.1 % topical cream acetaminophen 500 mg tablet 1,000 mg PO Q6H PRN 07/14/24 01/08/25 apixaban 5 mg tablet (Eliquis) 5 mg PO BID 07/14/24 01/08/25 beclomethasone dipropionate 80 1 inh inhalation .QD PRN 11/09/24 01/08/25 mcg/actuation HFA breath activated aerosol (Qvar RediHaler) Previous Rx's ?Medication ?Instructions ?Recorded Synthroid 100 mcg tablet 100 mcg PO QDAY #90 tabs 05/18/24 (levothyroxine) valsartan 160 mg tablet 160 mg PO DAILY #90 tabs 09/20/24 nifedipine 30 mg tablet,extended 30 mg PO DAILY #90 tabs 11/23/24 release furosemide 20 mg tablet (Lasix) 20 mg PO QAM #30 tabs 11/26/24 triamcinolone acetonide 0.1 % 1 applic topical BID #60 mL 12/10/24 lotion metoprolol succinate 100 mg 100 mg PO BID #60 tabs 01/05/25 tablet,extended release 24 hr (Toprol XL) Allergies Allergy/AdvReac Type Severity Reaction Status Date / Time hydrochlorothiazide Allergy Mild Rash Verified 01/08/25 14:52 acetaminophen (From Allergy Unknown Vomiting Verified 01/08/25 14:52 Darvocet-N) amlodipine Allergy Unknown Headache Verified 01/08/25 14:52 codeine Allergy Unknown Nausea Verified 01/08/25 14:52 doxazosin Allergy Unknown Tinnitus Verified 01/08/25 14:52 losartan Allergy Unknown Rash Verified 01/08/25 14:52 paroxetine Allergy Unknown Unknown Verified 01/08/25 14:52 pravastatin Allergy Unknown Unknown Verified 01/08/25 14:52 propoxyphene (From Allergy Unknown Vomiting Verified 01/08/25 14:52 Darvocet-N) topiramate Allergy Unknown Gastrointestinal Verified 01/08/25 14:52 Upset zinc (From Orazinc) Allergy Unknown Diarrhea Verified 01/08/25 14:52 lisinopril AdvReac Unknown Cough Verified 01/08/25 14:52 [facility] Medical History Mild persistent asthma ?J45.30 - Mild persistent asthma, uncomplicated (ICD-10) Injury of shoulder, left (06/03/24) ?S49.92XA - Unspecified injury of left shoulder and upper arm, initial encounter (ICD-10) Chronic neck pain ?M54.2 - Cervicalgia (ICD-10) ?G89.29 - Other chronic pain (ICD-10) Mixed hyperlipidemia ?E78.2 - Mixed hyperlipidemia (ICD-10) Prolapse of female pelvic organs ?N81.9 - Female genital prolapse, unspecified (ICD-10) Lichen sclerosus ?L90.0 - Lichen sclerosus et atrophicus (ICD-10) Chronic cough ?R05.3 - Chronic cough (ICD-10) Chronic low back pain ?M54.50 - Low back pain, unspecified (ICD-10) ?G89.29 - Other chronic pain (ICD-10) 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) ?I67.1 - Cerebral aneurysm, nonruptured (ICD-10) History of basal cell carcinoma (BCC) ?Z85.828 - Personal history of other malignant neoplasm of skin (ICD-10) CHF (congestive heart failure) ?I50.9 - Heart failure, unspecified (ICD-10) CKD (chronic kidney disease) stage 3, GFR 30-59 ml/min ?N18.30 - Chronic kidney disease, stage 3 unspecified (ICD-10) Meralgia paresthetica ?G57.10 - Meralgia paresthetica, unspecified lower limb (ICD-10) IBS (irritable bowel syndrome) ?K58.9 - Irritable bowel syndrome without diarrhea (ICD-10) Peripheral neuropathy ?G62.9 - Polyneuropathy, unspecified (ICD-10) Bilateral sensorineural hearing loss ?H90.3 - Sensorineural hearing loss, bilateral (ICD-10) Venous insufficiency ?I87.2 - Venous insufficiency (chronic) (peripheral) (ICD-10) Hypothyroidism ?E03.9 - Hypothyroidism, unspecified (ICD-10) Adjustment disorder with depressed mood ?F43.21 - Adjustment disorder with depressed mood (ICD-10) Fuchs' corneal dystrophy of both eyes ?H18.513 - Endothelial corneal dystrophy, bilateral (ICD-10) Primary open angle glaucoma ?H40.1190 - Primary open-angle glaucoma, unspecified eye, stage unspecified (ICD-10) YANG (obstructive sleep apnea) ?G47.33 - Obstructive sleep apnea (adult) (pediatric) (ICD-10) Migraine ?G43.909 - Migraine, unspecified, not intractable, without status migrainosus (ICD-10) Primary hypertension ?I10 - Essential (primary) hypertension (ICD-10) Surgical History History of Mohs micrographic surgery for skin cancer ?Z85.828 - Personal history of other malignant neoplasm of skin (ICD-10) ?Z98.890 - Other specified postprocedural states (ICD-10) History of foot surgery ?Z98.890 - Other specified postprocedural states (ICD-10) History of blepharoplasty (10/07/13) ?Z98.890 - Other specified postprocedural states (ICD-10) History of tonsillectomy ?Z90.89 - Acquired absence of other organs (ICD-10) History of appendectomy ?Z90.49 - Acquired absence of other specified parts of digestive tract (ICD-10) History of bladder suspension procedure (04/26/10) ?Z98.890 - Other specified postprocedural states (ICD-10) ?Z87.448 - Personal history of other diseases of urinary system (ICD-10) History of anterior colporrhaphy (02/17/19) ?Z98.890 - Other specified postprocedural states (ICD-10) History of total abdominal hysterectomy and bilateral salpingo-oophorectomy (1989) ?Z90.710 - Acquired absence of both cervix and uterus (ICD-10) ?Z90.722 - Acquired absence of ovaries, bilateral (ICD-10) ?Z90.79 - Acquired absence of other genital organ(s) (ICD-10) History of varicose vein stripping ?Z98.890 - Other specified postprocedural states (ICD-10) History of phacoemulsification of cataract of both eyes with intraocular lens implantation (2001) ?Z98.41 - Cataract extraction status, right eye (ICD-10) ?Z98.42 - Cataract extraction status, left eye (ICD-10) ?Z96.1 - Presence of intraocular lens (ICD-10) History of corneal transplant (2007) ?Z94.7 - Corneal transplant status (ICD-10) History of ptosis repair (02/24/18) ?Z98.890 - Other specified postprocedural states (ICD-10) Family History Daughter Thyroid disease Father Lung cancer Mother Coronary artery disease Depression Endometrial cancer High blood pressure Ovarian cancer Stroke Thyroid disease Varicose veins of both lower extremities Paternal Grandmother Diabetes Sister Eczema Stroke Daughter Thyroid disease Social History Narrative: , nonsmoker, her son Pako lives in her [place] What is your current living situation?: I presently have a place to live Problems where you live: no known problems In the past 12 months, utilities in danger of being shut off: no In past 12 months, lack of transportation kept you from medical appts, meetings, work, or getting things needed for daily living: no In the past 12 mos, have been you worried that your food would run out before you had money to buy more?: never true In the past 12 mos, the food you bought just didn't last and you didn't have money to buy more?: never true Smoking Status: Never smoker Do you use any of these nicotine containing products: None Second hand tobacco smoke exposure: No How often do you have a drink containing alcohol: never AUDIT-C Alcohol total score: 0 Non-prescribed substance use: denies use How often does anyone, including family, friends and others, physically hurt you: never How often does anyone, including family, friends and others, insult or talk down to you: never How often does anyone, including family, friends and others, threaten you with harm: never How often does anyone, including family, friends and others, scream or curse at you: never Exam Narrative: Exam Narrative: Constitutional: Appears well-developed and well-nourished. Alert. Conversant. Non toxic. Very pleasant. HENT: Head: Atraumatic. Nose: Nose normal. Mouth/Throat: Oral mucosa is clear and moist. no trismus. Eyes: Conjunctivae normal. EOM normal. Pupils equal, round, and reactive to light. No scleral icterus. Neck: Normal range of motion. Neck supple. No tracheal deviation present. Cardiovascular: Normal rate, regular rhythm. No gallop. No friction rub. No murmur heard. Symmetric PT artery pulses Pulmonary/Chest: Effort normal. No stridor. No respiratory distress. No wheezes. No rales. No rhonchi Musculoskeletal: RUE: Normal range of motion. No tenderness. No deformity LUE: Normal range of motion. No tenderness. No deformity RLE: Normal range of motion in her hip, knee, ankle. She does have a focal area of tenderness with ecchymosis that is about 6 x 8 cm on the posterior calf. Also mild tenderness without any swelling or ecchymosis on the posterior popliteal fossa and a little bit on her posterior thigh. No palpable cord. No ankle edema. No deformity. Normal range of motion. She is able to ambulate and bear weight without difficulty. LLE: Normal range of motion. No edema. No tenderness. No deformity Neurological: Alert and oriented to person, place, and time. Normal strength. CN II-VII intact. No sensory deficit. GCS eye subscore is 4. GCS verbal subscore is 5. GCS motor subscore is 6. Normal coordination Skin: Skin is warm and dry. No rash noted. No pallor. Normal capillary refill. Psychiatric: Normal mood. Normal affect. Const: Vital Signs, click to edit/add: Vital Signs - 24 hr 01/08/25 14:49 Temperature 98.6 F Pulse Rate [Right Pulse Oximeter] 66 Respiratory Rate 18 Blood Pressure [Ri ght Upper Arm] 136/92 H Pulse Oximetry 94 Oxygen Delivery Me thod Room Air Course Vital Signs Vital signs: Initial Vital Signs Temperature 98.6 F 01/08/25 14:49 Temperature Source Temporal Artery Scan 01/08/25 14:49 Pulse Rate 66 01/08/25 14:49 Pulse Rhythm Regular 01/08/25 14:49 Pulse Strength 3+ Normal 01/08/25 14:49 Respiratory Rate 18 01/08/25 14:49 Blood Pressure 136/92 H 01/08/25 14:49 Blood Pressure Mean 106 H 01/08/25 14:49 Blood Pressure Position Sitting 01/08/25 14:49 Pulse Oximetry 94 01/08/25 14:49 Oxygen Delivery Method Room Air 01/08/25 14:49 Vital Signs Temperature 98.6 F 01/08/25 14:49 Pulse Rate 66 01/08/25 14:49 Respiratory Rate 18 01/08/25 14:49 Blood Pressure 136/92 H 01/08/25 14:49 Pulse Oximetry 94 01/08/25 14:49 Oxygen Delivery Method Room Air 01/08/25 14:49 Temperature 98.6 F 01/08/25 14:49 Pulse Rate 66 01/08/25 14:49 Respiratory Rate 18 01/08/25 14:49 Blood Pressure 136/92 H 01/08/25 14:49 Pulse Oximetry 94 01/08/25 14:49 Oxygen Delivery Method Room Air 01/08/25 14:49 Medical Decision Making MDM Narrative Medical decision making narrative: This is a very pleasant 89-year-old female who is currently on Eliquis because of history of DVTs who presents to the ER today with new onset of atraumatic right posterior calf pain and pain radiating up her right popliteal fossa into her posterior right thigh. On exam she does have a roughly 6 x 8 cm area of ecchymosis on the right posterior calf. It is possible that she may have had an unrecognized trauma or or minimal trauma with out sized bruising because she is currently on Eliquis. DVT ultrasound of leg is obtained and is fortunately negative for any sign of DVT. She is not having any swelling or pain involving the knee joint. I do not think this represents a septic or gouty arthritis. No history of trauma to raise need for x-rays. There is no redness or warmth of the skin to raise concern for cellulitis, abscess. Certainly no evidence for any necrotizing infection. Her skin is otherwise normally pink, with normal cap refill and she does have palpable distal pulses. Her leg pain does not seem consistent with claudication or acute limb ischemia. There was substantial delay obtaining the images and then the results of the patient's DVT ultrasound here in the ER. She is eager for discharge. The questions answered to the best my ability. Imaging Data US Venous RLE: Attestation: I have reviewed the pertinent imaging results. Radiologist's impression: IMPRESSION: No deep vein thrombus within the right lower extremity. Discharge Plan Discharge Clinical Impression: Pain of right calf Patient Disposition: Home, Self-Care Condition: Stable Instructions: Leg Pain (ED), Hematoma (ED) Additional Instructions: As we discussed, right now your ultrasound looks good. There is no signs of new clots in the veins of your right leg. We suspect that the swollen, tender, bruised, painful area in her right calf probably is a small collection of blood called hematoma just under skin. Monitor this area carefully. If it is getting larger or you have more swelling of your right calf or leg, or if you develop any redness or warmth around this area, or if you have increasing pain in your right leg, or if you have any trouble breathing or chest pain, please come back to the ER right away. For now continue on your regular medications, including Eliquis. Prescriptions: No Action aspirin 81 mg tablet,chewable 81 mg PO QDAY clobetasol 0.05 % ointment 1 applic topical PRN nystatin-triamcinolone 100,000-0.1 unit/g-% cream 1 applic topical BID PRN valsartan 160 mg tablet 160 mg PO DAILY Qty: 90 1RF Qvar RediHaler 80 mcg/actuation HFA aerosol breath activated 1 inh inhalation .QD PRN acetaminophen 500 mg tablet 1,000 mg PO Q6H PRN Eliquis 5 mg tablet 5 mg PO BID triamcinolone acetonide 0.1 % lotion 1 applic topical BID Qty: 60 1RF levothyroxine [Synthroid] 100 mcg tablet 100 mcg PO QDAY Qty: 90 2RF nifedipine 30 mg tablet extended release 30 mg PO DAILY Qty: 90 1RF furosemide [Lasix] 20 mg tablet 20 mg PO QAM Qty: 30 5RF metoprolol succinate [Toprol XL] 100 mg tablet extended release 24 hr 100 mg PO BID Qty: 60 1RF Follow Up/Referrals: Dannie Porter MD [Primary Care Provider, Family Practice] Stand Alone Forms: [employer] Info Instructions
--- NOTE | 2025-01-08 15:10 | CRLHL7_ITS ---
For Patients: As a result of the Century Cures Act, medical imaging exams and procedure reports are released immediately into your electronic medical record. You may view this report before your referring provider. If you have questions, please contact your health care provider. INDICATION: Right lower extremity pain. TECHNIQUE: Right lower extremity Doppler venous ultrasound examination was performed. Grayscale and color Doppler images were obtained. Spectral analysis was performed. COMPARISON: None. FINDINGS: RIGHT LOWER EXTREMITY: Common femoral vein: Fully compressible. No deep vein thrombus. Normal flow and response to augmentation on color Doppler imaging. Superficial femoral vein: Duplicated femoral vein. Otherwise, fully compressible. No deep vein thrombus. Normal flow on color Doppler imaging. Deep femoral vein: No deep vein thrombus Popliteal vein: Fully compressible. No deep vein thrombus. Normal flow on color Doppler imaging. Lower calf: The visualized posterior tibial and peroneal veins are fully compressible. No deep vein thrombus. Normal flow and response to augmentation on color Doppler imaging. Superficial veins: The greater saphenous vein has been surgically removed. Soft tissues: No popliteal fossa fluid collection identified. LEFT LOWER EXTREMITY: Common femoral vein: Fully compressible. No deep vein thrombus. Normal flow and response to augmentation on color Doppler imaging. IMPRESSION: No deep vein thrombus within the right lower extremity. Dictated by Selwyn Hurd MD @ 01/08/2025 5:39:24 PM (Electronically Signed)
== END 2025-01-08 17:49 | disposition home or self-care (01) ==
PROVIDERS: Emergency Provider Emergency Medicine; PCP Family Medicine
DX: M79.661 Pain in right lower leg (principal)
CPT/HCPCS: 93971; 99282; 99283

== ENCOUNTER 2025-04-05 10:43 | Outpatient (CLI) | payer MEDICARE, BC, SELFPAY | END 2025-04-05 10:44 | disposition home or self-care (01) | PROVIDERS: PCP Family Medicine; Visit Provider Family Medicine | DX: E03.9 Hypothyroidism, unspecified (principal); I10 Essential (primary) hypertension | CPT/HCPCS: 80048; 83735; 84443; 85025 ==

== ENCOUNTER 2025-04-28 14:31 | Outpatient (CLI) | payer MEDICARE, BC, SELFPAY ==
[2025-04-28 22:23] LABS: PCR FLU A Negative PCR FLU A (Negative); PCR FLU B Negative PCR FLU B (Negative); PCR RSV Negative PCR RSV (Negative); SARS PCR* Negative SARS-CoV-2 (Negative)
== END 2025-04-28 14:32 | disposition home or self-care (01) ==
PROVIDERS: PCP Family Medicine; Visit Provider Nurse Practitioner Family
DX: R05.8 Other specified cough (principal)
CPT/HCPCS: 83880; 85025; 87631